=== PATIENT | female | born 1935 | race Caucasian/White ===

== ENCOUNTER 2022-04-29 09:00 | Outpatient (RCR) | payer OTHER, SELFPAY | END 2022-05-24 11:30 | disposition home or self-care (01) | PROVIDERS: Visit Provider Family Medicine | DX: M25.562 Pain in left knee (principal) | CPT/HCPCS: 97110; 97140 ==

== ENCOUNTER 2024-10-30 15:22 | Outpatient (CLI) | payer OTHER, SELFPAY | END 2024-10-30 15:23 | disposition home or self-care (01) | PROVIDERS: Visit Provider Student in an Organized Health Care Education/Training Program | DX: R55 Syncope and collapse (principal); R11.0 Nausea; R19.7 Diarrhea, unspecified | CPT/HCPCS: A0425; A0427 ==

== ENCOUNTER 2024-10-30 16:03 | Inpatient (IN) | payer OTHER, SELFPAY ==
[2024-10-30] VITALS (25 sets, daily range): BP systolic 126–145; BP diastolic 60–99; PULSE 69–97; RESP 9–24; TEMP 36.2; O2SAT 87–98; BMI 20.6
--- NOTE | 2024-10-30 16:29 | ED.GENADULT ---
HPI - General Adult General Date Seen: 10/30/24 Chief complaint: Head Injury/Pain Stated complaint: nausea, vomiting Time Seen by Provider: 10/30/24 16:18 History of Present Illness HPI narrative: 89-year-old female brought to the ER today by EMS from her home for evaluation of nausea, vomiting, diarrhea, leading to a fall with head injury. History is obtained in part from paramedics and in part from the patient. She does take Eliquis for stroke prophylaxis with AFib but no other cardiac medications. She is not on any medications for blood pressure or rate control. She also takes vitamins for her eyes. She has been healthy and well lately. She ate breakfast normally in lunch normally today. After lunch she went to the bathroom to go to the bathroom. She initially urinated and then started to feel unwell. It sounds like she subsequently had diarrhea and then eventually fell off the toilet. Details are a bit unclear whether not she fainted before after having diarrhea. It sounds like she hit her head and has a small laceration above her left eyebrow with a fair amount of dry blood on her face. She probably lost consciousness but unknown if she was unconscious when she hit the floor or from the head injury. She was on the bathroom floor for a while. Eventually she was able to call for help. Paramedics report that there was emesis and liquidy diarrhea on the floor around her. There was some blood on the floor but they suspect it was from her facial laceration, not bloody emesis or diarrhea, difficult to tell because of the mass. She has been alert and oriented but complaining of being very nauseous and very cold. Blood sugar was elevated at 340. Blood pressure was normal at about 140s/80s. product support specialist showed AFib in route. She has a known history of AFib. No RVR She is complaining of intense nausea and threw up again during transport. EMS established an IV and gave her 4 mg of Zofran and the beginnings of 250 mL of saline. They also report that she has bruising around her nose in both eyes. This suspect she was probably on the bathroom for for an hour to because her temperature was cold at 96.5. Patient is curled up in the position lying on her right shoulder. Her main complaint is how cold she feels and how nauseous she is. She denies headache. She denies any neck pain. She was placed into a C-collar as a precaution by EMS. She denies any abdominal pain cough, or back pain. She recalls that she did take her Eliquis this morning. She is not on any other prescription medications . She is allergic to sulfa. Related Data Home Medications ?Medication ?Instructions ?Recorded ?Confirmed apixaban 2.5 mg tablet (Eliquis) mg 10/30/24 brimonidine 0.2 %-timolol 0.5 % 1 drp ophthalmic (eye) Q12H 10/30/24 10/30/24 eye drops latanoprost 0.005 % eye drops 1 drp ophthalmic (eye) HS 10/30/24 10/30/24 lutein 15 mg-zeaxanthin extract 1 cap PO DAILY 10/30/24 10/30/24 0.7 mg capsule [id number] 1 cap PO DAILY 10/30/24 10/30/24 Allergies Allergy/AdvReac Type Severity Reaction Status Date / Time Sulfa (Sulfonamide Allergy Verified 10/30/24 22:38 Antibiotics) [facility] Medical History (Updated 10/31/24 @ 02:27 by Kevin Huynh MD) Facial laceration ?S01.81XA - Laceration without foreign body of other part of head, initial encounter (ICD-10) Nasal fracture ?S02.2XXA - Fracture of nasal bones, initial encounter for closed fracture (ICD-10) Dyslipidemia ?E78.5 - Hyperlipidemia, unspecified (ICD-10) Sensorineural hearing loss (SNHL) of both ears ?H90.3 - Sensorineural hearing loss, bilateral (ICD-10) Normal colonoscopy Anemia ?D64.9 - Anemia, unspecified (ICD-10) Hypoxia ?R09.02 - Hypoxemia (ICD-10) Dyspnea ?R06.00 - Dyspnea, unspecified (ICD-10) Syncope ?R55 - Syncope and collapse (ICD-10) Osteopenia ?M85.80 - Other specified disorders of bone density and structure, unspecified site (ICD-10) Atrial fibrillation ?I48.91 - Unspecified atrial fibrillation (ICD-10) Surgical History (Updated 10/30/24 @ 22:14 by Adreil Kee MD) History of cataract extraction with lens replacement H/O vein stripping ?Z98.890 - Other specified postprocedural states (ICD-10) History of D&C ?Z98.890 - Other specified postprocedural states (ICD-10) History of appendectomy ?Z90.49 - Acquired absence of other specified parts of digestive tract (ICD-10) Family History (Updated 10/30/24 @ 22:15 by Adriel Kee MD) Brother Multiple myeloma Dementia Father Gastrointestinal ulcer Mother Dementia Social History (Updated 10/30/24 @ 22:17 by Adriel Kee MD) Narrative: She lives independently in her own home in [place]. She has family that lives nearby that is helpful to her. She walks independently without assistive device. She mows her own lawn. She does her own cooking. She drives a car. She has 3 daughters and she designates all of them to be healthcare power of employment attorney. Her daughter Zarina Villagomez is a physician in [place]. Code status is DNR. What is your current living situation?: I presently have a place to live Problems where you live: no known problems Problems where you live details: no problems In the past 12 months, utilities in danger of being shut off: no In past 12 months, lack of transportation kept you from medical appts, meetings, work, or getting things needed for daily living: no In the past 12 mos, have been you worried that your food would run out before you had money to buy more?: never true In the past 12 mos, the food you bought just didn't last and you didn't have money to buy more?: never true Smoking Status: Never smoker How often do you have a drink containing alcohol: never How often do you have six or more drinks on one occasion: Never AUDIT-C Alcohol total score: 0 Non-prescribed substance use: denies use How often does anyone, including family, friends and others, physically hurt you: never How often does anyone, including family, friends and others, insult or talk down to you: never How often does anyone, including family, friends and others, threaten you with harm: never How often does anyone, including family, friends and others, scream or curse at you: never service: No Exam Narrative: Exam Narrative: Primary Survey: A- patent. Speaking clearly. Phonation normal. No stridor. B- breathing easily. Lung sounds clear and equal. Oxygen via nasal cannula by paramedics was a precaution. Saturations are normal on room air C- dry crusted blood on her face with a small left forehead/eyebrow laceration. Also dry crusted blood around her nose. no active bleeding. Blood pressure stable. Symmetric pulses and cap refill in 4 extremities. D- initially she is laying in the right lower lobe acute disposition and is nonverbal but when asked questions she is actually completely alert and oriented x3. She is covered in dry blood on her face, and wet nonbloody emesis and diarrhea on her torso and back side. She is keeping her arms called up against her body because she is cold and takes significant effort to help get her arms stretched out so he can get blood pressure, get the vomit cleaned off her body, and get her into warm, dry down and warm blankets to help him upper body . GCS 15. No focal deficits. Constitutional: Appears well-developed and well-nourished. Alert. Conversant. Non toxic. HENT: Head: Left forehead laceration 1 cm superior to the medial left eyebrow. Length is 1 cm. No underlying palpable forehead fracture.. No active bleeding. Bilateral periorbital ecchymosis and nasal ecchymosis. Dry blood at the nares. No depressed skull fracture.. Nose: Dry blood at the nares, which appears to probably have been coming from her other facial lacerations. There is a tiny 2-3 mm laceration on the bridge of the nose. Nose is quite tender to palpation. Nasal bruising and swelling. Bilateral periorbital and lower eyelid ecchymosis. No exophthalmos or enophthalmos. Mouth/Throat: Oral mucosa is clear but dry. No tongue lacerations. no trismus. Pharynx normal. Tonsils symmetric. No tonsillar enlargement, erythema, or exudate. Eyes: Conjunctivae normal. EOM normal. Pupils equal, round, and reactive to light. No scleral icterus. Neck: Normal range of motion. Neck supple. No tracheal deviation present. Cardiovascular: Normal rate, irregularly irregular rhythm. No gallop. No friction rub. No murmur heard. Symmetric radial artery pulses . No JVD Pulmonary/Chest: Effort normal. No stridor. No respiratory distress. No wheezes. No rales. No rhonchi . No tenderness. Abdominal: Soft. Bowel sounds normal. No distension. No mass. No tenderness. No rebound. No guarding. [] Musculoskeletal: RUE: Normal range of motion. No tenderness. No deformity LUE: Normal range of motion. No tenderness. No deformity RLE: Normal range of motion. No edema. No tenderness. No deformity LLE: Normal range of motion. No edema. No tenderness. No deformity Neurological: Alert and oriented to person, place, and time. Normal strength. CN II-VII intact. No sensory deficit. GCS eye subscore is 4. GCS verbal subscore is 5. GCS motor subscore is 6. Normal coordination Skin: Skin is warm and dry. No rash noted. No pallor. Normal capillary refill. Psychiatric: Complaining of feeling very cold. Initially seems drowsy and confused but that is incorrect. She is alert. She cooperates to the best of her ability. Overall, once we get cleaned up she is more cooperative Const: Vital Signs, click to edit/add: Vital Signs - 24 hr 10/30/24 16:16 10/30/24 16:17 10/30/24 16:33 Temperature 97.2 F L Pulse Rate 74 Pulse Rate [Right Pulse Oximeter] 77 Respiratory Rate 18 Blood Pressure 142/85 H Blood Pressure [Ri ght Upper Arm] 145/89 H Pulse Oximetry 97 97 Oxygen Delivery Me thod Room Air Oxygen Flow Rate 10/30/24 16:45 10/30/24 17:43 10/30/24 17:45 Temperature Pulse Rate 69 74 70 Pulse Rate [Right Pulse Oximeter] Respiratory Rate 21 15 Blood Pressure Blood Pressure [Ri ght Upper Arm] Pulse Oximetry 98 87 L 88 Oxygen Delivery Me thod Oxygen Flow Rate 10/30/24 17:46 10/30/24 17:47 10/30/24 17:47 Temperature Pulse Rate 76 71 Pulse Rate [Right Pulse Oximeter] 76 Respiratory Rate 9 L 13 Blood Pressure 142/89 H Blood Pressure [Ri ght Upper Arm] Pulse Oximetry 93 93 93 Oxygen Delivery Me thod Nasal Cannula Oxygen Flow Rate 3 10/30/24 18:00 10/30/24 18:02 10/30/24 18:15 Temperature Pulse Rate 70 73 84 Pulse Rate [Right Pulse Oximeter] Respiratory Rate Blood Pressure 143/99 H Blood Pressure [Ri ght Upper Arm] Pulse Oximetry 95 92 Oxygen Delivery Me thod Oxygen Flow Rate 10/30/24 18:17 10/30/24 18:52 10/30/24 19:00 Temperature Pulse Rate 97 91 86 Pulse Rate [Right Pulse Oximeter] Respiratory Rate 16 24 Blood Pressure 144/60 H Blood Pressure [Ri ght Upper Arm] Pulse Oximetry 91 93 Oxygen Delivery Me thod Oxygen Flow Rate 10/30/24 19:02 10/30/24 19:15 10/30/24 19:17 Temperature Pulse Rate 90 83 83 Pulse Rate [Right Pulse Oximeter] Respiratory Rate 18 16 18 Blood Pressure 126/63 134/60 Blood Pressure [Ri ght Upper Arm] Pulse Oximetry 92 96 93 Oxygen Delivery Me thod Oxygen Flow Rate 10/30/24 19:30 10/30/24 19:32 10/30/24 19:45 Temperature Pulse Rate 92 88 85 Pulse Rate [Right Pulse Oximeter] Respiratory Rate 19 15 16 Blood Pressure 143/63 H Blood Pressure [Ri ght Upper Arm] Pulse Oximetry 96 93 Oxygen Delivery Me thod Oxygen Flow Rate 10/30/24 19:47 10/30/24 20:00 10/30/24 20:02 Temperature Pulse Rate 76 83 81 Pulse Rate [Right Pulse Oximeter] Respiratory Rate 18 18 22 Blood Pressure 138/65 137/74 Blood Pressure [Ri ght Upper Arm] Pulse Oximetry 96 97 97 Oxygen Delivery Me thod Oxygen Flow Rate Course Vital Signs Vital signs: Initial Vital Signs Blood Pressure 142/85 H 10/30/24 16:16 Blood Pressure Mean 104 10/30/24 16:16 Vital Signs Blood Pressure 142/85 H 10/30/24 16:16 Temperature 97.2 F L 10/30/24 22:37 Pulse Rate 80 10/30/24 23:00 Respiratory Rate 20 10/30/24 23:00 Blood Pressure 138/86 10/30/24 22:37 Pulse Oximetry 99 10/31/24 01:10 Oxygen Delivery Method Nasal Cannula 10/31/24 01:10 Oxygen Flow Rate 2 10/31/24 01:10 Medications Administered Medications: Generic Name Dose Route Start Last Admin Trade Name Freq PRN Reason Stop Dose Admin Acetaminophen 650 mg 10/30/24 21:33 10/30/24 22:14 Acetaminophen 325 Mg Tablet PO 650 mg Q4H PRN Administration Latanoprost 1 drop 10/31/24 21:00 10/30/24 22:12 Latanoprost 0.005% Ophth EYE-BOTH 1 drop HS KEVAN Administration Non-Formulary Medication 1 drop 10/30/24 22:00 10/30/24 22:12 Brimonidine-Timolol EYE-BOTH 1 drop Q12H KEVAN Administration Omeprazole 20 mg 10/30/24 21:40 10/30/24 22:11 [address]eprazole [address] PO 20 mg BID KEVAN Administration Discontinued Medications Generic Name Dose Route Start Last Admin Trade Name Freq PRN Reason Stop Dose Admin Diphenhydramine HCl 12.5 mg 10/30/24 17:27 10/30/24 17:59 Diphenhydramine 50 Mg/Ml Inj IVP 10/30/24 17:28 12.5 mg ONCE ONE Administration Sodium Chloride 1,000 mls @ 1,000 mls/hr 10/30/24 16:30 10/30/24 18:04 0.9 % Sodium Chloride 1000 Ml IV 10/30/24 17:29 Infused .Q1H KEVAN Infusion Metoclopramide HCl 10 mg 10/30/24 17:27 10/30/24 18:02 Metoclopramide Hcl 5 Mg/Ml Inj IVP 10/30/24 17:28 10 mg ONCE ONE Administration Ondansetron HCl 4 mg 10/30/24 16:18 10/30/24 16:45 Ondansetron 2 Mg/Ml Inj IVP 10/30/24 16:19 4 mg ONCE ONE Administration Medical Decision Making [facility] Narrative Medical decision making narrative: 89-year-old female with history of atrial fibrillation brought to the ER today by EMS from home. She started having vomiting and diarrhea this afternoon and then apparently fainted in the bathroom. She has signs of a frontal left eyebrow laceration with facial bleeding and also bilateral periorbital ecchymosis. She is on Eliquis. She was hemodynamically stable upon arrival Trauma: Although she fell and hit her head on Eliquis head CT scan is negative for any acute intracranial bleed. Mental status is normal. Because of mechanism a C-spine CT is obtained and is also negative. Patient is cleared from the C-collar after negative imaging. She has no focal deficits or signs or symptoms of spinal cord injury. Facial CT does show mildly displaced nasal bone fractures. She does have a small 1 cm laceration on her forehead just above her left eyebrow which we were able to clean here in the ER and then closed using Dermabond she does have a very tiny 2-3 mm wound on her nasal bridge which was closed with Dermabond. Cardiac: Fell off the toilet. Unknown if she got dizzy and fell, had a syncopal event call, sees, or mechanical fall. With consideration for cardiac etiologies, EKG was obtained and shows atrial fibrillation which is previously known. She is not having any chest pain. Troponin is normal. N terminal proBNP is abnormal at 1830. CT chest is obtained and[] Pulmonary: Does have a cough but she says that is chronic. No wheezing or bronchospasm on exam. Initially sats were normal but subsequently in the ER was hypoxic with sats in the high 80s on room air. Sats came up to the 90s on nasal cannula. Chest CT shows no acute findings such as pneumonia, pneumothorax, pulmonary edema. No rib fractures. Incidentally she does have pulmonary nodules which require 6 month follow-up CT. GI. She had significant vomiting and diarrhea at home and had ongoing nausea here in the ER, unresponsive to 2 doses of Zofran. Differential here would include viral gastroenteritis as well as more sinister causes such as bowel obstruction, colitis, diverticulitis, perforation, abscess, mesenteric ischemia (has a history of AFib but has been compliant in taking her Eliquis, including this morning. Therefore unlikely to be embolic.) On abdomen/pelvis CT no evidence for colitis, ischemia, perforation, abscess, obstruction. There is some nonspecific pericholecystic fluid without any other evidence for cholecystitis. She is not having any tenderness on serial abdominal exam but just does have nausea. At this point no definitive evidence for acute cholecystitis. White count normal. Lactic acid is fortunately normal at 1.3. Renal/electrolytes: Despite repetitive vomiting and diarrhea at home, sodium and potassium are normal. Kidney function normal. Endocrine: Blood sugar 182. Does not have any known history of diabetes Heme: Patient is anemic with a hemoglobin 9.2. I do not have any baseline labs for comparison. Most recent hemoglobin in the [employer] system was in 2020. At that time it was 14.1. She has no bloody vomit or bloody diarrhea here in the ER. She denies any recent bloody emesis or melena. No evidence for any internal bleeding on CT scan chest/abdomen/pelvis. She is on Eliquis for atrial fibrillation stroke prophylaxis. Will need serial hemoglobins in the hospital. Unclear if she was bleeding from her facial wound enough to cause this degree of anemia. Blood pressure stable. Lactic acid is normal. Infectious disease: Urinalysis is negative. Chest x-ray negative for pneumonia. No evidence for cellulitis or skin infection. Does not have any neck stiffness or headache to suggest meningitis. No clear evidence for sepsis causing her syncope. COVID/RSV/influenza negative. Disposition: Clearly the patient needs to be admitted. Discussed with hospitalist, Dr. Kee who graciously will admit her. Lab Data Labs: Lab Results 10/30/24 10/30/24 Range/Units 16:50 19:04 WBC 8.39 (4.50-11.00) K/uL RBC 3.51 L (4.00-5.20) m/uL Hgb 9.2 L (12.0-16.0) gm/dL Hct 30.4 L (33.0-51.0) % MCV 87 (80-100) fL MCH 26 (26-34) pg MCHC 30 L (32-36) gm/dL RDW Coeff of Ivis 16.6 H (11.5-15.5) % Plt Count 253 (140-440) K/uL Neut % (Auto) 84.8 H (42.0-72.0) % Lymph % (Auto) 9.4 L (20-44) % Brooke % (Auto) 4.1 (0.0-11.0) % Eos % (Auto) 1.0 (0.0-7.0) % Baso % (Auto) 0.6 (0.0-3.0) % Neut # (Auto) 7.10 H (1.7-7.0) K/uL Lymph # (Auto) 0.80 L (0.90-2.90) K/uL Brooke # (Auto) 0.30 (0.00-0.90) K/UL Eos # (Auto) 0.08 (0.00-0.50) K/uL Baso # (Auto) 0.05 (0.00-0.30) K/uL Abs Immat Gran (auto) 0.01 (0.00-0.30) K/uL Imm/Tot Granulo (auto) 0.1 % Sodium 136 (135-149) mmol/L Potassium 4.3 (3.6-5.1) mmol/L Chloride 102 (96-114) mmol/L Carbon Dioxide 24 (20-32) mmol/L Anion Gap 10 (7-15) mEq/L BUN 25 (7-30) mg/dL Creatinine 0.7 (0.5-1.5) mg/dL Estimated GFR 83 ml/min Glucose 182 H (60-115) mg/dL Lactate 1.3 (0.5-1.9) mmol/L Calcium 8.7 (8.4-10.6) mg/dL Troponin I < 0.01 L (0.01-0.04) ng/mL NT-Pro-B Natriuret Pep 1830 pg/mL SARS-CoV-2 (PCR) Negative SARS-CoV-2 (Negative) Influenza Type A (PCR) Negative PCR FLU A (Negative) Influenza Type B (PCR) Negative PCR FLU B (Negative) RSV (PCR) Negative PCR RSV (Negative) Imaging Data CT scan - head: Attestation: I have reviewed the pertinent imaging results. My impression: No acute findings. Possible encephalomalacia and right occipital lobe Radiologist's impression: IMPRESSION: No acute intracranial findings. CT C spine: Attestation: I have reviewed the pertinent imaging results. Radiologist's impression: IMPRESSION: 1. No sign of acute injury. 2. Multilevel degenerative spondylosis. CT Chest/Ab/Pelvis: Attestation: I have reviewed the pertinent imaging results. Radiologist's impression: IMPRESSION: 1. Trace pericholecystic fluid without other signs for acute cholecystitis. Consider correlation with right upper quadrant ultrasound. 2. Multiple bilateral subpleural nodules, measuring up to 6 mm. Recommend follow-up chest CT in 3-6 months. 3. No other acute findings within the chest, abdomen, or pelvis. 4. Few nonacute findings, as above. CT facial bones: Attestation: I have reviewed the pertinent imaging results. Radiologist's impression: IMPRESSION: Acute mildly displaced bilateral nasal bone fractures. ECG Data Attestation: I personally reviewed and interpreted this ECG as follows: Interpretation: Atrial fibrillation Rate: 83 WA: Not applicable QRS axis: Rightward axis deviation. ST segment/T wave: No ST segment elevation or depression. QTc: 573 Discharge Plan Discharge Clinical Impression: Anemia, Syncope, Nausea, Forehead laceration, Fracture of nasal bone, Hypoxia, Multiple pulmonary nodules Patient Disposition: Admitted As Inpatient Condition: Guarded Procedures Laceration Left forehead laceration: Pre procedure diagnosis: Left forehead laceration Verification/time out: correct site and correct procedure Site: face Depth: simple, single layer Size (cm): other (The Dermabond)
[2024-10-30] MEDS: ONDANSETRON 2 MG/ML inj 4 MG IVP (16:45)
[2024-10-30] MEDS: 0.9 % SODIUM CHLORIDE 1000 ml 1,000 ML IV (16:45)
[2024-10-30 16:51] LABS: Lactate* 1.3 mmol/L (0.5-1.9)
[2024-10-30 16:54] LABS: Basophils Absolute Auto 0.05 K/uL (0.00-0.30); Basophils Percent Auto 0.6 % (0.0-3.0); Eosinophils Absolute Auto 0.08 K/uL (0.00-0.50); Hematocrit 30.4 % (33.0-51.0); Hemoglobin* 9.2 gm/dL (12.0-16.0); Immature Granulocytes Abs Auto 0.01 K/uL (0.00-0.30); Immature Granulocytes Pct Auto 0.1 %; Lymphocytes Percent Auto 9.4 % (20-44); Mean Corpuscular HGB Conc 30 gm/dL (32-36); Mean Corpuscular Hemoglobin 26 pg (26-34); Mean Corpuscular Volume 87 fL (80-100); Monocytes Percent Auto 4.1 % (0.0-11.0); Neutrophils Percent Auto 84.8 % (42.0-72.0); Platelet Count* 253 K/uL (140-440); RDW Coefficient of Variation % 16.6 % (11.5-15.5); Red Blood Count 3.51 m/uL (4.00-5.20); White Blood Count* 8.39 K/uL (4.50-11.00)
[2024-10-30 16:58] LABS: Slide Review Reflex No
[2024-10-30 17:06] LABS: Appearance Urine Clear (Clear); Bilirubin Urine Negative (Negative); Blood Urine Negative (Negative); Color Urine Yellow (Yellow); Glucose Urine 1+ (Negative); Ketones Urine Negative (Negative); Leukocyte Esterase Urine Negative (Negative); Nitrite Urine Negative (Negative); Protein Urine Negative (Negative); Specific Gravity Urine 1.015 (1.000-1.030); Urobilinogen Urine 0.2 (0.2-1.0); pH Urine 7.5 (5.0-8.5)
[2024-10-30 17:12] LABS: Chloride* 102 mmol/L (96-114); Potassium* 4.3 mmol/L (3.6-5.1); Sodium* 136 mmol/L (135-149)
[2024-10-30 17:15] LABS: Anion Gap 10 mEq/L (7-15); Blood Urea Nitrogen* 25 mg/dL (7-30); Carbon Dioxide* 24 mmol/L (20-32); Creatinine* 0.7 mg/dL (0.5-1.5); Estimated Glomerular Filt Rate 83 ml/min
[2024-10-30 17:16] LABS: Calcium* 8.7 mg/dL (8.4-10.6); Glucose* 182 mg/dL (60-115)
[2024-10-30 17:28] LABS: RBC Urine 0-2 (0-2); WBC Urine 0-2 (0-5)
[2024-10-30 17:30] LABS: NT Pro B Type NatriureticPept* 1830 pg/mL; Troponin I* < 0.01 ng/mL (0.01-0.04)
[2024-10-30] MEDS: diphenhydrAMINE 50 MG/ML inj 12.5 MG IVP (17:59)
[2024-10-30] MEDS: METOCLOPRAMIDE HCL 5 MG/ML INJ 10 MG IVP (18:02)
[2024-10-30 19:44] LABS: PCR FLU A Negative PCR FLU A (Negative); PCR FLU B Negative PCR FLU B (Negative); PCR RSV Negative PCR RSV (Negative); SARS PCR* Negative SARS-CoV-2 (Negative)
--- NOTE | 2024-10-30 21:48 | P.IMHP_ITS ---
Hospitalist- H&P: HPI History of Present Illness Date Seen: 10/30/24 Chief complaint: nausea, vomiting Narrative: Dinora Villagomez is a 89 year old female with atrial fibrillation presents with acute on chronic fatigue, dyspnea, anemia and syncope today. Patient had an episode of syncope on the toilet today. Patient reports she did not feel very well this morning. Went to sit on the toilet. She subsequently had a diarrhea stool fell forward off the toilet on the floor where she sustained a laceration above her eyebrow and over her nose and had quite a bit of bleeding from this injury. Paramedics found diarrhea stool and blood in the bathroom. She did arouse and call for help. She reports that she has had acute on chronic exertional dyspnea. She is normally very active including mowing her own large lawn. In the winter she has been walking a mi a day. Yesterday she attempted to walk her mi but had to stop 6 times to catch her breath. She did report gradually worsening exertional dyspnea to her primary care provider 3 weeks ago and she got scheduled for a nuclear stress test which is pending. She is known to have atrial fibrillation. She is not on medication for rate control but does take Eliquis. In the emergency department she was found to have anemia with a hemoglobin of 9.2 and an MCV of 87. Her last hemoglobin in the clinic was in February of 2021 with a hemoglobin of 14.1 and MCV of 99. She has a remote history of iron deficiency anemia due to menstrual bleeding but has not had any history of anemia since then. She is not aware of any bleeding other than from her facial laceration today. She denies bloody, melanotic or maroon stools. She has not had previous problems with syncope or seizure. She was seen to be hypoxic in the emergency department. O2 sat of 87% on room air but unremarkable chest CT. She had vomiting in the emergency department which was nonbloody. She continues to report nausea and has some mild epigastric pain as well. She was not aware of the diarrhea that was reported by the paramedics when they picked her up. She reports feeling chilled all day today. She is not aware of having a fever. [facility] Medical History (Updated 10/30/24 @ 22:26 by Adriel Kee MD) Dyslipidemia ?E78.5 - Hyperlipidemia, unspecified (ICD-10) Sensorineural hearing loss (SNHL) of both ears ?H90.3 - Sensorineural hearing loss, bilateral (ICD-10) Normal colonoscopy Anemia ?D64.9 - Anemia, unspecified (ICD-10) Hypoxia ?R09.02 - Hypoxemia (ICD-10) Dyspnea ?R06.00 - Dyspnea, unspecified (ICD-10) Syncope ?R55 - Syncope and collapse (ICD-10) Osteopenia ?M85.80 - Other specified disorders of bone density and structure, unspecified site (ICD-10) Atrial fibrillation ?I48.91 - Unspecified atrial fibrillation (ICD-10) Surgical History (Updated 10/30/24 @ 22:14 by Adriel Kee MD) History of cataract extraction with lens replacement H/O vein stripping ?Z98.890 - Other specified postprocedural states (ICD-10) History of D&C ?Z98.890 - Other specified postprocedural states (ICD-10) History of appendectomy ?Z90.49 - Acquired absence of other specified parts of digestive tract (ICD- 10) Family History (Updated 10/30/24 @ 22:15 by Adriel Kee MD) Brother Multiple myeloma Dementia Father Gastrointestinal ulcer Mother Dementia Social History (Updated 10/30/24 @ 22:17 by Adriel Kee MD) Narrative: She lives independently in her own home in [place]. She has family that lives nearby that is helpful to her. She walks independently without assistive device. She mows her own lawn. She does her own cooking. She drives a car. She has 3 daughters and she designates all of them to be healthcare power of estate attorney. Her daughter Zarina Villagomez is a physician in [place]. Code status is DNR. Smoking Status: Never smoker How often do you have a drink containing alcohol: never How often do you have six or more drinks on one occasion: Never AUDIT-C Alcohol total score: 0 Non-prescribed substance use: denies use service: No Meds Home Medications and Allergies Home Medications ?Medication ?Instructions ?Recorded ?Confirmed ?Type apixaban 2.5 mg tablet (Eliquis) mg 10/30/24 History brimonidine 0.2 %-timolol 0.5 % 1 drp ophthalmic (eye) Q12H 10/30/24 10/30/24 History eye drops latanoprost 0.005 % eye drops 1 drp ophthalmic (eye) HS 10/30/24 10/30/24 History lutein 15 mg-zeaxanthin extract 1 cap PO DAILY 10/30/24 10/30/24 History 0.7 mg capsule [id number] 1 cap PO DAILY 10/30/24 10/30/24 History Allergies Allergy/AdvReac Type Severity Reaction Status Date / Time Sulfa (Sulfonamide Allergy Verified 10/30/24 21:33 Antibiotics) Exam Narrative: Exam Narrative: She is alert and appears in no distress. Head is notable for moderate bruising around both eyes upper and lower lids. She has a small laceration above her left eyebrow and over the bridge of her nose. [id number] swelling of the nose without marked deformity. No active bleeding. No other trauma on her head is noted. No facial asymmetry. Extraocular movements are full. Visual reyes in intact. Pupils are equal round reactive to light. Oropharynx with dry mucous membranes but otherwise normal. No obvious oropharyngeal trauma. Neck is supple without mass or adenopathy or tenderness. Respirations notable for mild diffuse crackles in all lung reyes. No wheezing. No consolidation. Cardiovascular: S1, S2, irregularly irregular 1/6 systolic murmur. No gallop or rub. Abdomen is soft with minimal epigastric tenderness. No mass. No peritonitis. External genitalia normal. She has intact pulses in all her extremities. She moves all 4 extremities well. There is no rash. No edema. Const: Vital Signs, click to edit/add: Vital Signs - 24 hr 10/30/24 16:16 10/30/24 16:17 10/30/24 16:33 Temperature 97.2 F L Pulse Rate 74 Pulse Rate [Right Pulse Oximeter] 77 Respiratory Rate 18 Blood Pressure 142/85 H Blood Pressure [Ri ght Upper Arm] 145/89 H Pulse Oximetry 97 97 Oxygen Delivery Me thod Room Air Oxygen Flow Rate 10/30/24 16:45 10/30/24 17:43 10/30/24 17:45 Temperature Pulse Rate 69 74 70 Pulse Rate [Right Pulse Oximeter] Respiratory Rate 21 15 Blood Pressure Blood Pressure [Ri ght Upper Arm] Pulse Oximetry 98 87 L 88 Oxygen Delivery Me thod Oxygen Flow Rate 10/30/24 17:46 10/30/24 17:47 10/30/24 17:47 Temperature Pulse Rate 76 71 Pulse Rate [Right Pulse Oximeter] 76 Respiratory Rate 9 L 13 Blood Pressure 142/89 H Blood Pressure [Ri ght Upper Arm] Pulse Oximetry 93 93 93 Oxygen Delivery Me thod Nasal Cannula Oxygen Flow Rate 3 10/30/24 18:00 10/30/24 18:02 10/30/24 18:15 Temperature Pulse Rate 70 73 84 Pulse Rate [Right Pulse Oximeter] Respiratory Rate Blood Pressure 143/99 H Blood Pressure [Ri ght Upper Arm] Pulse Oximetry 95 92 Oxygen Delivery Me thod Oxygen Flow Rate 10/30/24 18:17 10/30/24 18:52 10/30/24 19:00 Temperature Pulse Rate 97 91 86 Pulse Rate [Right Pulse Oximeter] Respiratory Rate 16 24 Blood Pressure 144/60 H Blood Pressure [Ri ght Upper Arm] Pulse Oximetry 91 93 Oxygen Delivery Me thod Oxygen Flow Rate 10/30/24 19:02 10/30/24 19:15 10/30/24 19:17 Temperature Pulse Rate 90 83 83 Pulse Rate [Right Pulse Oximeter] Respiratory Rate 18 16 18 Blood Pressure 126/63 134/60 Blood Pressure [Ri ght Upper Arm] Pulse Oximetry 92 96 93 Oxygen Delivery Me thod Oxygen Flow Rate 10/30/24 19:30 10/30/24 19:32 10/30/24 19:45 Temperature Pulse Rate 92 88 85 Pulse Rate [Right Pulse Oximeter] Respiratory Rate 19 15 16 Blood Pressure 143/63 H Blood Pressure [Ri ght Upper Arm] Pulse Oximetry 96 93 Oxygen Delivery Me thod Oxygen Flow Rate 10/30/24 19:47 10/30/24 20:00 10/30/24 20:02 Temperature Pulse Rate 76 83 81 Pulse Rate [Right Pulse Oximeter] Respiratory Rate 18 18 22 Blood Pressure 138/65 137/74 Blood Pressure [Ri ght Upper Arm] Pulse Oximetry 96 97 97 Oxygen Delivery Me thod Oxygen Flow Rate Documenting provider has reviewed patient's vital signs: yes Hospitalist - H&P: Result Labs Labs: Short CBC 10/30/24 Range/Units 16:50 WBC 8.39 (4.50-11.00) K/uL Hgb 9.2 L (12.0-16.0) gm/dL Hct 30.4 L (33.0-51.0) % Plt Count 253 (140-440) K/uL BMP 10/30/24 16:50 Sodium 136 Potassium 4.3 Chloride 102 Carbon Dioxide 24 BUN 25 Creatinine 0.7 Glucose 182 H Calcium 8.7 Cardiac Enzymes 10/30/24 Range/Units 16:50 Troponin I < 0.01 L (0.01-0.04) ng/mL Urine 10/30/24 Range/Units Unknown Urine Color Yellow (Yellow) Urine Appearance Clear (Clear) Urine pH 7.5 (5.0-8.5) Ur Specific [place] 1.015 (1.000-1.030) Urine Protein Negative (Negative) Urine Glucose (UA) 1+ A (Negative) Assessment and Plan Assessment and plan (1) Syncope: Problem comment: Syncope is the likely explanation for loss of consciousness today. Possible co ntributing causes including gastrointestinal illness with vomiting and diarrhea, vasovagal syncope while on the toilet, new anemia and possibly cardiopulmonary disease. Continue evaluation for all of these. Status: Acute (2) Vomiting: Problem comment: Monitor for recurrence and evaluate based on clinical course. Clear liquid diet tonight Status: Acute (3) Diarrhea: Problem comment: Monitor for recurrence and evaluate depending on clinical course Status: Acute (4) Dyspnea: Problem comment: Acute on chronic dyspnea with exertion. Cause for this is uncertain. Considerations include lung disease, heart disease including heart failure, pulmonary hypertension, atrial fibrillation with RVR, anemia. Status: Acute (5) Hypoxia: Problem comment: Cause for this is uncertain. She does have mildly abnormal lung exam. CT chest is unremarkable. Did not have CTA for PE though she is on Eliquis. Status: Acute (6) Anemia: Problem comment: She has a new anemia that has developed in the last 4 and half years. She has a dropping MCV suggestive of possible iron deficiency. Obtain iron studies. Evaluate for blood loss. Hold apixaban for now pending possibility of upper endoscopy if evidence of GI bleeding. Status: Acute Plan 89-year-old female admitted to the hospital for evaluation of multiple problems noted above. She will need evaluation for her syncope, new anemia, vomiting and diarrhea, hypoxia and worsening dyspnea. Evaluation for the these multiple problems will likely take 2-3 days. Anticipate discharge to home. Total Time Spent Total Time Spent: Total time spent today is 85 minutes in coordination of care, reviewing outside records, discussion with patient and her daughters and other providers about ongoing evaluation management of these multiple problems
[2024-10-30] MEDS: OMEPRAZOLE 20 MG CAPSULE DR PO (22:11)
[2024-10-30] MEDS: LATANOPROST 0.005% OPHTH 1 DROP EYE-BOTH (22:12)
[2024-10-30] MEDS: ACETAMINOPHEN 325 MG TABLET 650 MG PO (22:14)
[2024-10-30 22:52] LABS: Hemoglobin* 9.1 gm/dL (12.0-16.0)
[2024-10-31] VITALS (12 sets, daily range): BP systolic 107–148; BP diastolic 45–83; PULSE 61–86; RESP 14–20; TEMP 36.5–37.1; O2SAT 90–99
[2024-10-31 06:32] LABS: Basophils Absolute Auto 0.05 K/uL (0.00-0.30); Basophils Percent Auto 0.7 % (0.0-3.0); Eosinophils Absolute Auto 0.04 K/uL (0.00-0.50); Eosinophils Percent Auto 0.6 % (0.0-7.0); Hematocrit 26.4 % (33.0-51.0); Immature Granulocytes Abs Auto 0.01 K/uL (0.00-0.30); Immature Granulocytes Pct Auto 0.1 %; Immature Reticulocyte Fraction 32.2 % (3.0-15.9); Lymphocytes Absolute Auto 1.38 K/uL (0.90-2.90); Lymphocytes Percent Auto 20.7 % (20-44); Mean Corpuscular HGB Conc 30 gm/dL (32-36); Mean Corpuscular Hemoglobin 26 pg (26-34); Mean Corpuscular Volume 88 fL (80-100); Monocytes Percent Auto 10.8 % (0.0-11.0); Neutrophils Absolute Auto 4.47 K/uL (1.7-7.0); Neutrophils Percent Auto 67.1 % (42.0-72.0); Platelet Count* 213 K/uL (140-440); RDW Coefficient of Variation % 16.8 % (11.5-15.5); Red Blood Count 3.01 m/uL (4.00-5.20); Reticulocyte Hemoglobin Equivi 23.7 pg (29.0-35.0); Reticulocytes Absolute 0.09 # (0.03-0.08); White Blood Count* 6.67 K/uL (4.50-11.00)
[2024-10-31 06:41] LABS: Albumin* 3.7 g/dL (3.3-5.0)
[2024-10-31 06:44] LABS: Aspartate Amino Transferase* 29 U/L (12-35); Bilirubin Total* 0.4 mg/dL (0.1-1.5); Magnesium* 2.2 mg/dL (1.5-2.6); Total Protein* 6.3 g/dL (6.0-8.3)
[2024-10-31 06:45] LABS: Alanine Aminotransferase* 17 U/L (4-35); Alkaline Phosphatase* 48 U/L (40-150)
[2024-10-31 06:51] LABS: Iron* 29 ug/dL (37-170)
[2024-10-31 07:00] LABS: Hemoglobin* 7.9 gm/dL (12.0-16.0)
--- NOTE | 2024-10-31 07:00 | CRLHL7_ITS ---
For Patients: As a result of the Century Cures Act, medical imaging exams and procedure reports are released immediately into your electronic medical record. You may view this report before your referring provider. If you have questions, please contact your health care provider. INDICATION: Vomiting, tenderness, pericholecystic fluid on CT. TECHNIQUE: Ultrasound abdomen limited. Thirteen images. COMPARISON: CT 10/30/2024. FINDINGS: Gallbladder: No gallstones are visualized. Gallbladder wall thickening is present measuring up to 4 mm. There is trace pericholecystic edema. Negative sonographic Romero`s sign. Common bile duct: 4 mm. Unremarkable limited exam of the common bile duct, without visualized filling defect. IMPRESSION: 1. Gallbladder wall thickening and pericholecystic edema raises concern for acute acalculous cholecystitis; however, sonographic Romero`s sign is negative. Recommend correlation with recent pain medication administration and physical exam. If further imaging is required for problem solving, consider nuclear medicine hepatobiliary imaging. 2. No biliary ductal dilation. Dictated by Sarahi Lloyd MD @ 10/31/2024 7:09:39 AM (Electronically Signed)
[2024-10-31 07:01] LABS: Percent Iron Saturation 7 % (20-50); Total Iron Binding Capacity 412 ug/dL (265-497)
--- NOTE | 2024-10-31 07:01 | PC.NURSE ---
End of shift summary: Pt has been A&O, afebrile and VSS with exception to needing supplemental O2 overnight. O2 sats dropped to 87-88% on RA so she was placed 1L for support. Pt c/o ?all over stiffness? so PRN Tylenol was given at bedtime. Pt slept well in between cares. She is Ax1 up to the BR. She?s continent of [place] but does report some dribbling. NPO @ 0100 for gallbladder US done this morning. ECHO also ordered for today. PIV in left wrist SL. TELE read A. Fib/Flutter. Eliquis currently on hold. Bilateral periorbital bruising and over nose. Left forehead lac closed with glue and nasal bridge lac MICHAEL. ?
[2024-10-31 07:05] LABS: Hemoglobin A1C* 5.8 % (0-5.6)
[2024-10-31 07:52] LABS: Slide Review Reflex No
--- NOTE | 2024-10-31 08:22 | PM.IMPN1 ---
Progress Note: A&P Assessment and plan (1) Syncope: Problem details: - presented with LOC on the toilet 10/30, presumed syncope with ddx of viral GI illness, vasovagal source, anemia, valvular disease - telemetry unremarkable, TTE 10/31, blood transfusion ordered 10/31 - therapies following Status: Acute (2) Anemia: Problem details: - new anemia (9.2 on 10/30, Hgb 14 in 2020), normocytic - 7.9 on 10/31, will transfuse 1U PRBCs and continue to follow - FOBT pending, on schedule for EGD 11/01/24 - LDH, Haptoglobin, peripheral smear pending (elevated reticulocyte count 10/30) - holding Apixaban, receiving BID PPI Status: Acute (3) Atrial fibrillation: Problem details: - anticoagulated on Apixaban, doesn't require rate control - repeat TTE ordered Last echocardiogram was September of 2022: Final Impressions: 1. Normal LV size, moderately increased wall thickness, normal global systolic function with an estimated EF of 60 - 65%. 2. Severe biatrial enlargement. 3. The aortic valve is trileaflet and sclerotic, no stenosis and trivial regurgitation. 4. The mitral valve is sclerotic, trace mitral regurgitation. 5. Normal estimated RV systolic (32 mmHg) and RA (3 mmHg) pressures. 6. Color Doppler suggests a possible PFO. Status: Acute (4) Dyspnea: Problem details: - acute on chronic dyspnea with exertion, presumably 2/2 anemia. ddx includes CHF, pulmonary HTN, atrial fibrillation Status: Acute (5) Hypoxia: Problem details: - mild, on RA 10/31 - source unclear: reassuring CTA (incidental nodules need outpatient f/u), ddx includes cardiac process or anemia. TTE pending Status: Acute (6) Vomiting and diarrhea: Problem details: - noted prior to admission, no recurrence 10/31, advancing diet without any symptoms - possibly cholecystitis on imaging, exam and symptoms not c/w this (likely related to R heart disease) Status: Acute (7) Nasal fracture: Problem details: - mildly displaced bilateral nasal bone fractures, conservative management Status: Acute Plan - per above - daughter Zarina updated at bedside, questions answered Subjective Date Seen: 10/31/24 Interval history: Dinora was admitted to the hospital last night after having an episode of syncope on the toilet that was accompanied by diarrhea and vomiting. In the emergency room, found to be hypoxic with an oxygen saturation of 87% on room air. Imaging revealed a minimally displaced nasal fracture, incidentally noted small pulmonary nodules and possible cholecystitis. Labs revealed a new normocytic anemia with hemoglobin of 9.2 (was 14 in 2020). Patient has not noticed any melena or hematochezia, she is anticoagulated and Eliquis for history of atrial fibrillation. Required low-dose supplemental oxygen overnight, stable on room air this morning. Hgb today is 7.9; she is amenable to a blood transfusion, particularly in the setting of dyspnea and hospitalization. TTE pending, FOBT not yet collected. She is tentatively scheduled for EGD tomorrow given concern for GI bleed. This morning, Dinora is eating. Has no RUQ pain, no nausea or recurrent vomiting/diarrhea. No specific concerns for hospitalist team this morning. Exam Narrative: Exam Narrative: GEN: Alert and sitting comfortably in bed. Hard of hearing, answering questions appropriately HEENT: Bruising under eyes bilaterally, hemostatic abrasions over bridge of nose. EOMIs bilaterally CV: Irregular rhythm, rate 60-70s R: LCTA bilaterally without concerning wheezing Ext: wwp, trace edema BLE Skin: No other concerning skin lesions or rashes on exposed skin Neuro: Nonfocal Psych: Appropriate Const: Vital Signs, click to edit/add: Vital Signs - 24 hr 10/30/24 16:16 10/30/24 16:17 10/30/24 16:33 Temperature 97.2 F L Pulse Rate 74 Pulse Rate [Pulse Oximeter] Pulse Rate [Right Pulse Oximeter] 77 Respiratory Rate 18 Blood Pressure 142/85 H Blood Pressure [Le ft Arm] Blood Pressure [Ri ght Upper Arm] 145/89 H Pulse Oximetry 97 97 Oxygen Delivery Me thod Room Air Oxygen Flow Rate 10/30/24 16:45 10/30/24 17:43 10/30/24 17:45 Temperature Pulse Rate 69 74 70 Pulse Rate [Pulse Oximeter] Pulse Rate [Right Pulse Oximeter] Respiratory Rate 21 15 Blood Pressure Blood Pressure [Le ft Arm] Blood Pressure [Ri ght Upper Arm] Pulse Oximetry 98 87 L 88 Oxygen Delivery Me thod Oxygen Flow Rate 10/30/24 17:46 10/30/24 17:47 10/30/24 17:47 Temperature Pulse Rate 76 71 Pulse Rate [Pulse Oximeter] Pulse Rate [Right Pulse Oximeter] 76 Respiratory Rate 9 L 13 Blood Pressure 142/89 H Blood Pressure [Le ft Arm] Blood Pressure [Ri ght Upper Arm] Pulse Oximetry 93 93 93 Oxygen Delivery Me thod Nasal Cannula Oxygen Flow Rate 3 10/30/24 18:00 10/30/24 18:02 10/30/24 18:15 Temperature Pulse Rate 70 73 84 Pulse Rate [Pulse Oximeter] Pulse Rate [Right Pulse Oximeter] Respiratory Rate Blood Pressure 143/99 H Blood Pressure [Le ft Arm] Blood Pressure [Ri ght Upper Arm] Pulse Oximetry 95 92 Oxygen Delivery Me thod Oxygen Flow Rate 10/30/24 18:17 10/30/24 18:52 10/30/24 19:00 Temperature Pulse Rate 97 91 86 Pulse Rate [Pulse Oximeter] Pulse Rate [Right Pulse Oximeter] Respiratory Rate 16 24 Blood Pressure 144/60 H Blood Pressure [Le ft Arm] Blood Pressure [Ri ght Upper Arm] Pulse Oximetry 91 93 Oxygen Delivery Me thod Oxygen Flow Rate 10/30/24 19:02 10/30/24 19:15 10/30/24 19:17 Temperature Pulse Rate 90 83 83 Pulse Rate [Pulse Oximeter] Pulse Rate [Right Pulse Oximeter] Respiratory Rate 18 16 18 Blood Pressure 126/63 134/60 Blood Pressure [Le ft Arm] Blood Pressure [Ri ght Upper Arm] Pulse Oximetry 92 96 93 Oxygen Delivery Me thod Oxygen Flow Rate 10/30/24 19:30 10/30/24 19:32 10/30/24 19:45 Temperature Pulse Rate 92 88 85 Pulse Rate [Pulse Oximeter] Pulse Rate [Right Pulse Oximeter] Respiratory Rate 19 15 16 Blood Pressure 143/63 H Blood Pressure [Le ft Arm] Blood Pressure [Ri ght Upper Arm] Pulse Oximetry 96 93 Oxygen Delivery Me thod Oxygen Flow Rate 10/30/24 19:47 10/30/24 20:00 10/30/24 20:02 Temperature Pulse Rate 76 83 81 Pulse Rate [Pulse Oximeter] Pulse Rate [Right Pulse Oximeter] Respiratory Rate 18 18 22 Blood Pressure 138/65 137/74 Blood Pressure [Le ft Arm] Blood Pressure [Ri ght Upper Arm] Pulse Oximetry 96 97 97 Oxygen Delivery Me thod Oxygen Flow Rate 10/30/24 22:37 10/30/24 22:37 10/30/24 23:00 Temperature 97.2 F L Pulse Rate 81 Pulse Rate [Pulse Oximeter] 77 Pulse Rate [Right Pulse Oximeter] Respiratory Rate 20 20 Blood Pressure Blood Pressure [Le ft Arm] 138/86 Blood Pressure [Ri ght Upper Arm] Pulse Oximetry 94 94 Oxygen Delivery Me thod Nasal Cannula Nasal Cannula Oxygen Flow Rate 2 2 10/30/24 23:00 10/30/24 23:00 10/31/24 01:10 Temperature Pulse Rate Pulse Rate [Pulse Oximeter] 80 80 Pulse Rate [Right Pulse Oximeter] Respiratory Rate 20 20 Blood Pressure Blood Pressure [Le ft Arm] Blood Pressure [Ri ght Upper Arm] Pulse Oximetry 88 99 Oxygen Delivery Me thod Room Air Nasal Cannula Oxygen Flow Rate 2 10/31/24 03:00 10/31/24 07:00 Temperature 98.3 F Pulse Rate Pulse Rate [Pulse Oximeter] 77 61 Pulse Rate [Right Pulse Oximeter] Respiratory Rate 18 16 Blood Pressure Blood Pressure [Le ft Arm] 107/45 L 129/55 L Blood Pressure [Ri ght Upper Arm] Pulse Oximetry 95 95 Oxygen Delivery Me thod Nasal Cannula Room Air Oxygen Flow Rate 1 Labs Labs: Laboratory Results - last 24 hr 10/30/24 10/30/24 10/30/24 16:50 19:04 22:44 WBC 8.39 RBC 3.51 L Hgb 9.2 L 9.1 L Hct 30.4 L MCV 87 MCH 26 MCHC 30 L RDW Coeff of Ivis 16.6 H Plt Count 253 Neut % (Auto) 84.8 H Lymph % (Auto) 9.4 L [place] % (Auto) 4.1 Eos % (Auto) 1.0 Baso % (Auto) 0.6 Neut # (Auto) 7.10 H Lymph # (Auto) 0.80 L [place] # (Auto) 0.30 Eos # (Auto) 0.08 Baso # (Auto) 0.05 Abs Immat Gran (auto) 0.01 Imm/Tot Granulo (auto) 0.1 Absolute Retic Percent Retic Immature Retic Fraction Retic Hgb Equivalent Sodium 136 Potassium 4.3 Chloride 102 Carbon Dioxide 24 Anion Gap 10 BUN 25 Creatinine 0.7 Estimated GFR 83 Glucose 182 H Hemoglobin A1c Lactate 1.3 Calcium 8.7 Magnesium Iron TIBC % Saturation Total Bilirubin Direct Bilirubin AST ALT Alkaline Phosphatase Troponin I < 0.01 L NT-Pro-B Natriuret Pep 1830 Total Protein Albumin TSH Urine Color Urine Appearance Urine pH Ur Specific [place] Urine Protein Urine Glucose (UA) Urine Ketones Urine Blood Urine Nitrite Urine Bilirubin Urine Urobilinogen Ur Leukocyte Esterase Urine RBC Urine WBC Ur Squamous Epith Cells Urine Bacteria SARS-CoV-2 (PCR) Negative SARS-CoV-2 Influenza Type A (PCR) Negative PCR FLU A Influenza Type B (PCR) Negative PCR FLU B RSV (PCR) Negative PCR RSV 10/30/24 10/31/24 Unknown 05:57 WBC 6.67 RBC 3.01 L Hgb 7.9 L* Hct 26.4 L MCV 88 MCH 26 MCHC 30 L RDW Coeff of Ivis 16.8 H Plt Count 213 Neut % (Auto) 67.1 Lymph % (Auto) 20.7 [place] % (Auto) 10.8 Eos % (Auto) 0.6 Baso % (Auto) 0.7 Neut # (Auto) 4.47 Lymph # (Auto) 1.38 [place] # (Auto) 0.70 Eos # (Auto) 0.04 Baso # (Auto) 0.05 Abs Immat Gran (auto) 0.01 Imm/Tot Granulo (auto) 0.1 Absolute Retic 0.09 H Percent Retic 3.0 H Immature Retic Fraction 32.2 H Retic Hgb Equivalent 23.7 L Sodium Potassium Chloride Carbon Dioxide Anion Gap BUN Creatinine Estimated GFR Glucose Hemoglobin A1c 5.8 H Lactate Calcium Magnesium 2.2 Iron 29 L TIBC 412 % Saturation 7 L Total Bilirubin 0.4 Direct Bilirubin 0.0 AST 29 ALT 17 Alkaline Phosphatase 48 Troponin I NT-Pro-B Natriuret Pep Total Protein 6.3 Albumin 3.7 TSH 1.460 Urine Color Yellow Urine Appearance Clear Urine pH 7.5 Ur Specific [place] 1.015 Urine Protein Negative Urine Glucose (UA) 1+ A Urine Ketones Negative Urine Blood Negative Urine Nitrite Negative Urine Bilirubin Negative Urine Urobilinogen 0.2 Ur Leukocyte Esterase Negative Urine RBC 0-2 Urine WBC 0-2 Ur Squamous Epith Cells None Urine Bacteria None SARS-CoV-2 (PCR) Influenza Type A (PCR) Influenza Type B (PCR) RSV (PCR)
[2024-10-31 10:47] LABS: Lactate Dehydrogenase* 347 U/L (120-246)
[2024-10-31] MEDS: DORZOLAMIDE/TIMOLOL 2-0.5% OPHTH 1 DROP EYE-LEFT ×2 (11:15→21:20)
[2024-10-31] MEDS: FUROSEMIDE 10 MG/ML inj IVP (17:42)
--- NOTE | 2024-10-31 18:54 | PC.NURSE ---
The patient is pleasant and cooperative during cares, VSS on RA. No complaints of pain this shift. IV patent in RAC. 1 unit of PRBC was infused today, the patient tolerated this well. 1800 hgb pending. SBA to BR. Echo was complete today as well. No N/V and appetite is reassuring. I encouraged fluid intake, calls appropriately. EGD tomorrow. Tameka OTOOLE BSN
[2024-10-31 19:35] LABS: Hemoglobin* 9.7 gm/dL (12.0-16.0)
[2024-10-31] MEDS: SODIUM CHLORIDE 0.9 % (FLUSH) 10 ML SYRINGE 5 ML IVF (21:21)
[2024-10-31] MEDS: ACETAMINOPHEN 325 MG TABLET 650 MG PO (21:23)
[2024-10-31] MEDS: OMEPRAZOLE 20 MG CAPSULE DR PO (21:24)
[2024-10-31] MEDS: LATANOPROST 0.005% OPHTH 1 DROP EYE-BOTH (21:24)
[2024-10-31] MEDS: SENNOSIDES/DOCUSATE TABLET PO (21:37)
[2024-11-01 00:25] VITALS: PULSE 66; RESP 18
[2024-11-01 03:03] VITALS: BP 132/72; PULSE 73; RESP 18; TEMP 36.6; O2SAT 90
[2024-11-01] MEDS: ACETAMINOPHEN 325 MG TABLET 650 MG PO ×2 (03:11→10:56)
--- NOTE | 2024-11-01 05:33 | PC.NURSE ---
[id number]: A&Ox3. Patient appeared to sleep well during noc. Independent in room. Denies dizziness, lightheadedness, N/V, CP. EGD scheduled at 1400 today. Snack given at 0300. NPO @0600. PRN Tylenol administered for overall body stiffness.
[2024-11-01 06:28] LABS: Basophils Absolute Auto 0.04 K/uL (0.00-0.30); Basophils Percent Auto 0.6 % (0.0-3.0); Eosinophils Absolute Auto 0.22 K/uL (0.00-0.50); Eosinophils Percent Auto 3.2 % (0.0-7.0); Hemoglobin* 9.8 gm/dL (12.0-16.0); Immature Granulocytes Abs Auto 0.01 K/uL (0.00-0.30); Immature Granulocytes Pct Auto 0.1 %; Lymphocytes Percent Auto 19.1 % (20-44); Mean Corpuscular HGB Conc 31 gm/dL (32-36); Mean Corpuscular Hemoglobin 26 pg (26-34); Mean Corpuscular Volume 86 fL (80-100); Monocytes Percent Auto 8.7 % (0.0-11.0); Neutrophils Absolute Auto 4.63 K/uL (1.7-7.0); Neutrophils Percent Auto 68.3 % (42.0-72.0); Platelet Count* 236 K/uL (140-440); RDW Coefficient of Variation % 16.2 % (11.5-15.5); Red Blood Count 3.71 m/uL (4.00-5.20); White Blood Count* 6.79 K/uL (4.50-11.00)
[2024-11-01 06:42] LABS: Albumin* 3.5 g/dL (3.3-5.0); Chloride* 106 mmol/L (96-114)
[2024-11-01 06:43] LABS: Potassium* 4.2 mmol/L (3.6-5.1); Sodium* 137 mmol/L (135-149)
[2024-11-01 06:45] LABS: Anion Gap 8 mEq/L (7-15); Bilirubin Total* 0.4 mg/dL (0.1-1.5); Blood Urea Nitrogen* 29 mg/dL (7-30); Carbon Dioxide* 23 mmol/L (20-32); Creatinine* 0.8 mg/dL (0.5-1.5); Est. Creatinine Clearance* 32.93; Estimated Glomerular Filt Rate 70 ml/min; Total Protein* 6.4 g/dL (6.0-8.3)
[2024-11-01 06:46] LABS: Alanine Aminotransferase* 17 U/L (4-35); Alkaline Phosphatase* 40 U/L (40-150); Aspartate Amino Transferase* 23 U/L (12-35); Calcium* 8.4 mg/dL (8.4-10.6); Glucose* 163 mg/dL (60-115)
[2024-11-01 07:00] VITALS: BP 135/81; PULSE 64; PULSE 71; PULSE 93; RESP 18; TEMP 36.7; O2SAT 88
[2024-11-01 07:07] LABS: Slide Review Reflex No
[2024-11-01] MEDS: SODIUM CHLORIDE 0.9 % (FLUSH) 10 ML SYRINGE 5 ML IVF (08:34)
[2024-11-01] MEDS: DORZOLAMIDE/TIMOLOL 2-0.5% OPHTH 1 DROP EYE-LEFT (08:34)
[2024-11-01] MEDS: OMEPRAZOLE 20 MG CAPSULE DR PO (08:34)
--- NOTE | 2024-11-01 09:06 | PM.IMPN1 ---
Progress Note: A&P Assessment and plan (1) Syncope: Problem details: - presented with LOC on the toilet 10/30, presumed syncope with ddx of viral GI illness, vasovagal source, anemia, valvular disease - telemetry unremarkable, TTE 10/31, blood transfusion ordered 10/31 - therapies following Status: Acute (2) Anemia: Problem details: - new anemia (9.2 on 10/30, Hgb 14 in 2020), normocytic - 7.9 on 10/31, will transfuse 1U PRBCs and continue to follow - FOBT pending, on schedule for EGD 11/01/24 - LDH, Haptoglobin, peripheral smear pending (elevated reticulocyte count 10/30) - holding Apixaban, receiving BID PPI Status: Acute (3) Atrial fibrillation: Problem details: - anticoagulated on Apixaban, doesn't require rate control - repeat TTE ordered Last echocardiogram was September of 2022: Final Impressions: 1. Normal LV size, moderately increased wall thickness, normal global systolic function with an estimated EF of 60 - 65%. 2. Severe biatrial enlargement. 3. The aortic valve is trileaflet and sclerotic, no stenosis and trivial regurgitation. 4. The mitral valve is sclerotic, trace mitral regurgitation. 5. Normal estimated RV systolic (32 mmHg) and RA (3 mmHg) pressures. 6. Color Doppler suggests a possible PFO. Repeat ECHO 10/31/2024: Final Impressions: 1. Normal left ventricular size, normal wall thickness, normal global systolic function, calculated EF of 73 %. 2. Right ventricular cavity size is normal, global systolic RV function is mildly reduced. 3. Severely enlarged left atrium. 4. The aortic valve is trileaflet, no stenosis and mild to moderate regurgitation. 5. The mitral valve is normal, trace mitral regurgitation. 6. 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 7. Trivial pericardial effusion. 8. Color Doppler suggests a left to right atrial level shunt. Status: Acute (4) Dyspnea: Problem details: - acute on chronic dyspnea with exertion, presumably 2/2 anemia. ddx includes CHF, pulmonary HTN, atrial fibrillation Status: Acute (5) Hypoxia: Problem details: - mild, on RA 10/31 - source unclear: reassuring CTA (incidental nodules need outpatient f/u), ddx includes cardiac process or anemia. 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: Noted on both echocardiograms 09/2022 and 10/2024 Followed by [facility] Status: Acute Plan - per above - daughter Zarina updated at bedside, questions answered Exam Const: Vital Signs, click to edit/add: Vital Signs - 24 hr 10/31/24 11:32 10/31/24 11:53 10/31/24 11:53 Temperature 97.7 F 98.5 F 98.4 F Pulse Rate 79 81 69 Pulse Rate [Pulse Oximeter] Respiratory Rate 14 14 14 Blood Pressure 148/62 H 133/72 111/63 Blood Pressure [Le ft Arm] Pulse Oximetry 94 93 93 Oxygen Delivery Me thod Room Air Room Air Room Air 10/31/24 13:05 10/31/24 13:07 10/31/24 13:23 Temperature 98.7 F 98.6 F Pulse Rate 72 72 86 Pulse Rate [Pulse Oximeter] Respiratory Rate 20 14 Blood Pressure 117/58 L 113/58 L Blood Pressure [Le ft Arm] Pulse Oximetry 94 92 93 Oxygen Delivery Me thod Room Air 10/31/24 14:00 10/31/24 15:00 10/31/24 15:00 Temperature 98.2 F 98.4 F Pulse Rate 83 85 82 Pulse Rate [Pulse Oximeter] Respiratory Rate 16 16 Blood Pressure 110/68 142/83 H Blood Pressure [Le ft Arm] Pulse Oximetry 93 93 Oxygen Delivery Me thod Room Air Room Air 10/31/24 21:20 10/31/24 23:13 11/01/24 00:25 Temperature 98.3 F Pulse Rate 84 Pulse Rate [Pulse Oximeter] 72 66 Respiratory Rate 18 18 Blood Pressure Blood Pressure [Le ft Arm] 128/65 Pulse Oximetry 90 Oxygen Delivery Me thod Room Air 11/01/24 03:03 11/01/24 07:00 11/01/24 07:00 Temperature 97.8 F 98.1 F Pulse Rate 64 Pulse Rate [Pulse Oximeter] 73 71 Respiratory Rate 18 18 Blood Pressure Blood Pressure [Le ft Arm] 132/72 135/81 Pulse Oximetry 90 88 Oxygen Delivery Me thod Room Air Room Air Labs Labs: Laboratory Results - last 24 hr 10/31/24 10/31/24 10/31/24 05:57 08:36 10:26 WBC RBC Hgb Hct MCV MCH MCHC RDW Coeff of Ivis Plt Count Neut % (Auto) Lymph % (Auto) [place] % (Auto) Eos % (Auto) Baso % (Auto) Neut # (Auto) Lymph # (Auto) [place] # (Auto) Eos # (Auto) Baso # (Auto) Abs Immat Gran (auto) Imm/Tot Granulo (auto) Sodium Potassium Chloride Carbon Dioxide Anion Gap BUN Creatinine Estimated Creat Clear Estimated GFR Glucose Calcium Total Bilirubin Direct Bilirubin AST ALT Alkaline Phosphatase Lactate Dehydrogenase 347 H Total Protein Albumin Lab Acknowledgement Test Added Blood Type A Positive Antibody Screen NEGATIVE Crossmatch ([facility]) See Detail 10/31/24 11/01/24 18:06 06:03 WBC 6.79 RBC 3.71 L Hgb 9.7 L 9.8 L Hct 32.0 L MCV 86 MCH 26 MCHC 31 L RDW Coeff of Ivis 16.2 H Plt Count 236 Neut % (Auto) 68.3 Lymph % (Auto) 19.1 L [place] % (Auto) 8.7 Eos % (Auto) 3.2 Baso % (Auto) 0.6 Neut # (Auto) 4.63 Lymph # (Auto) 1.30 [place] # (Auto) 0.60 Eos # (Auto) 0.22 Baso # (Auto) 0.04 Abs Immat Gran (auto) 0.01 Imm/Tot Granulo (auto) 0.1 Sodium 137 Potassium 4.2 Chloride 106 Carbon Dioxide 23 Anion Gap 8 BUN 29 Creatinine 0.8 Estimated Creat Clear 32.93 Estimated GFR 70 Glucose 163 H Calcium 8.4 Total Bilirubin 0.4 Direct Bilirubin 0.0 AST 23 ALT 17 Alkaline Phosphatase 40 Lactate Dehydrogenase Total Protein 6.4 Albumin 3.5 Lab Acknowledgement Blood Type Antibody Screen Crossmatch ([facility])
[2024-11-01 11:00] VITALS: BP 167/91; PULSE 93; RESP 18; TEMP 36.6; O2SAT 95
--- NOTE | 2024-11-01 11:58 | P.DS_ITS ---
DS: Providers Provider Date Seen: 11/01/24 Date of admission: 10/30/24 21:34 Primary care physician: Dr. Citlaly Alejandra Admitting Clinician: Adriel Kee MD Consults: 10/30/24 21:37 Consult to Occupational Therapy [CONS] Routine Comment: Reason(s) for OT Consult:: Evaluate and Treat Any Restrictions?:: No Restrictions Consult to Physical Therapy [CONS] Routine Comment: Reason(s) for PT Consult:: Evaluate and Treat Any Restrictions?:: No Restrictions Attending Physician on discharge: JLUIS Kwok, [facility] Date of Discharge: 11/01/24 DS: Diagnosis Discharge Diagnosis (1) Syncope: Status: Acute Problem details: - presented with LOC on the toilet 10/30, presumed syncope with ddx of viral GI illness, vasovagal source, anemia, valvular disease - telemetry unremarkable, TTE 10/31, blood transfusion ordered 10/31 - therapies following Prior to discharge, TTE completed showing tethered tricuspid valve with severe regurgitation change from previous TTE 2022. Telemetry remained unremarkable at rest and with activity. Receive 1 unit PRBC on 10/31, hemoglobin remains stable 9.8 on day of discharge. No further vomiting or diarrhea. Continue with further outpatient workup with PCP, Cardiology, follow-up pending labs. (2) Anemia: Status: Acute Problem details: - new anemia (9.2 on 10/30, Hgb 14 in 2020), normocytic - 7.9 on 10/31, will transfuse 1U PRBCs and continue to follow - FOBT pending, on schedule for EGD 11/01/24 - LDH, Haptoglobin, peripheral smear pending (elevated reticulocyte count 10/30) - holding Apixaban, receiving BID PPI Hemoglobin improved to 9.8, remaining stable, no christian bleeding. No BM so unable to obtain FOBT. EGD completed prior to discharge, results pending. Have asked my colleague to follow up on these results prior to discharge. Continue PPI. Resume apixaban. Close outpatient follow-up with PCP for recheck hemoglobin and pending labs which were sent out. (3) Atrial fibrillation: Status: Acute Problem details: - anticoagulated on Apixaban, doesn't require rate control - repeat TTE ordered Last echocardiogram was September of 2022: Final Impressions: 1. Normal LV size, moderately increased wall thickness, normal global systolic function with an estimated EF of 60 - 65%. 2. Severe biatrial enlargement. 3. The aortic valve is trileaflet and sclerotic, no stenosis and trivial regurgitation. 4. The mitral valve is sclerotic, trace mitral regurgitation. 5. Normal estimated RV systolic (32 mmHg) and RA (3 mmHg) pressures. 6. Color Doppler suggests a possible PFO. Repeat ECHO 10/31/2024: Final Impressions: 1. Normal left ventricular size, normal wall thickness, normal global systolic function, calculated EF of 73 %. 2. Right ventricular cavity size is normal, global systolic RV function is mildly reduced. 3. Severely enlarged left atrium. 4. The aortic valve is trileaflet, no stenosis and mild to moderate regurgitation. 5. The mitral valve is normal, trace mitral regurgitation. 6. 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 7. Trivial pericardial effusion. 8. Color Doppler suggests a left to right atrial level shunt. Significant change in tricuspid valve with noted severe regurgitation since previous echocardiogram. Will follow up with Dr. Haskins, cardiology, in the clinic. (4) Dyspnea: Status: Acute Problem details: - acute on chronic dyspnea with exertion, presumably 2/2 anemia. ddx includes CHF, pulmonary HTN, atrial fibrillation Prior to discharge, improved with ambulation, reporting feeling better, less dyspneic. Continued outpatient evaluation and management with PCP. (5) Hypoxia: Status: Resolved Problem details: - mild, on RA 10/31 - source unclear: reassuring CTA (incidental nodules need outpatient f/u), ddx includes cardiac process or anemia. TTE as above Hypoxia resolved prior to discharge. TTE findings as above. Outpatient follow- up with Cardiology. CT shows Multiple bilateral subpleural nodules, measuring up to 6 mm. Recommend follow-up chest CT in 3-6 months with PCP (6) Vomiting and diarrhea: Status: Resolved Problem details: - noted prior to admission, no recurrence 10/31, advancing diet without any symptoms - possibly cholecystitis on imaging, exam and symptoms not c/w this (likely related to R heart disease) Resolved prior to discharge, no further episodes. (7) Nasal fracture: Status: Acute Problem details: - CT shows mildly displaced bilateral nasal bone fractures, conservative management Outpatient follow-up with PCP for further management options if necessary. 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 Haskins, outpatient follow-up given change in tricuspid valve findings. DS: Summary Hospital Course Hospital Course: [age] year old female was admitted to the medical floor for further workup following syncopal episode. Course of care and details as noted above. Remainder of chronic medical comorbidities were monitored and managed with home medications. Status at Discharge Functional status at discharge: independent ambulation Overall status at discharge: patient is back to baseline Time Spent with Patient Time attestation: Total time spent providing and/or coordinating discharge services: Time spent: Greater than 30 minutes Exam Narrative: Exam Narrative: PHYSICAL EXAM General: Pleasant, conversant, NAD HEENT: Facial bruising noted Cardiovascular: RRR Pulmonary: No dyspnea on room air Neurological: Alert, answering questions appropriately Skin: Warm, dry. Const: Vital Signs, click to edit/add: Vital Signs - 24 hr 10/31/24 13:05 10/31/24 13:07 10/31/24 13:23 Temperature 98.7 F 98.6 F Pulse Rate 72 72 86 Pulse Rate [Pulse Oximeter] Respiratory Rate 20 14 Blood Pressure 117/58 L 113/58 L Blood Pressure [Le ft Arm] Pulse Oximetry 94 92 93 Oxygen Delivery Me thod Room Air 10/31/24 14:00 10/31/24 15:00 10/31/24 15:00 Temperature 98.2 F 98.4 F Pulse Rate 83 85 82 Pulse Rate [Pulse Oximeter] Respiratory Rate 16 16 Blood Pressure 110/68 142/83 H Blood Pressure [Le ft Arm] Pulse Oximetry 93 [facility] 10/31/24 21:20 10/31/24 23:13 11/01/24 00:25 Temperature 98.3 F Pulse Rate 84 Pulse Rate [Pulse Oximeter] 72 66 Respiratory Rate 18 18 Blood Pressure Blood Pressure [Le ft Arm] 128/65 Pulse Oximetry 90 [facility] 11/01/24 03:03 11/01/24 07:00 11/01/24 07:00 Temperature 97.8 F 98.1 F Pulse Rate 64 Pulse Rate [Pulse Oximeter] 73 71 Respiratory Rate 18 18 Blood Pressure Blood Pressure [Le ft Arm] 132/72 135/81 Pulse Oximetry 90 88 Oxygen Delivery Me thod Room Air Room Air 11/01/24 07:00 11/01/24 11:00 Temperature 97.8 F Pulse Rate Pulse Rate [Pulse Oximeter] 93 93 Respiratory Rate 18 18 Blood Pressure Blood Pressure [Le ft Arm] 167/91 H Pulse Oximetry 95 Oxygen Delivery Me thod Room Air DS: Data Data Completed and Pending Pending studies at discharge: Peripheral smear, haptoglobin Labs on day of discharge: Labs from last 24 hours 11/01/24 10/31/24 10/31/24 06:03 18:06 08:36 WBC 6.79 RBC 3.71 L Hgb 9.8 L 9.7 L Hct 32.0 L MCV 86 MCH 26 MCHC 31 L RDW Coeff of Ivis 16.2 H Plt Count 236 Neut % (Auto) 68.3 Lymph % (Auto) 19.1 L [place] % (Auto) 8.7 Eos % (Auto) 3.2 Baso % (Auto) 0.6 Neut # (Auto) 4.63 Lymph # (Auto) 1.30 [place] # (Auto) 0.60 Eos # (Auto) 0.22 Baso # (Auto) 0.04 Abs Immat Gran (auto) 0.01 Imm/Tot Granulo (auto) 0.1 Sodium 137 Potassium 4.2 Chloride 106 Carbon Dioxide 23 Anion Gap 8 BUN 29 Creatinine 0.8 Estimated Creat Clear 32.93 Estimated GFR 70 Glucose 163 H Calcium 8.4 Total Bilirubin 0.4 Direct Bilirubin 0.0 AST 23 ALT 17 Alkaline Phosphatase 40 Total Protein 6.4 Albumin 3.5 Crossmatch ([facility]) See Detail Imaging Gallbladder ultrasound: Attestation: I have reviewed the pertinent imaging results. Radiologist's impression: Gallbladder: No gallstones are visualized. Gallbladder wall thickening is present measuring up to 4 mm. There is trace pericholecystic edema. Negative sonographic Romero`s sign. Common bile duct: 4 mm. Unremarkable limited exam of the common bile duct, without visualized filling defect. IMPRESSION: 1. Gallbladder wall thickening and pericholecystic edema raises concern for acute acalculous cholecystitis; however, sonographic Romero`s sign is negative. Recommend correlation with recent pain medication administration and physical exam. If further imaging is required for problem solving, consider nuclear medicine hepatobiliary imaging. 2. No biliary ductal dilation. Face CT: Attestation: I have reviewed the pertinent imaging results. Radiologist's impression: Streak artifact from dental hardware limits evaluation of the adjacent structures. Small left frontal scalp laceration and mild periorbital soft tissue edema. The orbital santos are intact. Status post bilateral lens removal. The globes are symmetric in size and normal in contour. There is no retrobulbar hematoma. Acute minimally displaced bilateral nasal bone fractures. The zygomatic arches are intact. The santos of the maxillary sinuses are intact. Mild mucosal thickening of the paranasal sinuses. The mastoid air cells remain clear. The pterygoid plates are intact. The nasopharyngeal contours are unremarkable. The mandible and temporomandibular joints are intact. IMPRESSION: Acute mildly displaced bilateral nasal bone fractures. CT Chest/Ab/Pelvis: Attestation: I have reviewed the pertinent imaging results. Radiologist's impression: Cardiovascular structures: Cardiomegaly. Atherosclerotic calcification of the thoracic aorta. The thoracic aorta and main pulmonary artery are normal in caliber. No large pulmonary embolism. Mediastinum and yared: No mass or adenopathy. Lungs and pleura: Multiple bilateral subpleural nodules, measuring up to 6 mm. Scattered subpleural fibrotic changes. Biapical interlobular septal thickening. Chest wall and axilla: No mass or adenopathy. Bones: No suspicious bone lesions. Unremarkable for age. ABDOMEN AND PELVIS: Liver: Unremarkable. Gallbladder and bile ducts: Trace pericholecystic fluid. The gallbladder is otherwise normal in appearance. No stone or common bile ductal dilatation. Mild intrahepatic biliary ductal dilatation. Pancreas: Unremarkable. Spleen: Unremarkable. Adrenal glands: Unremarkable. Kidneys: Unremarkable. GI tract: Unremarkable. Vascular structures: Focal penetrating atherosclerotic ulcer versus ulcerative plaque in the infrarenal abdominal aorta (), unchanged since the prior exam. No aneurysm. Patent mesenteric arteries. Lymph nodes: Unremarkable. Miscellaneous: Unremarkable. No free air or significant free fluid. Pelvic Organs: Unremarkable. Bones: No suspicious bone lesions. Unremarkable for age. IMPRESSION: 1. Trace pericholecystic fluid without other signs for acute cholecystitis. Consider correlation with right upper quadrant ultrasound. 2. Multiple bilateral subpleural nodules, measuring up to 6 mm. Recommend follow-up chest CT in 3-6 months. 3. No other acute findings within the chest, abdomen, or pelvis. 4. Few nonacute findings, as above. CT scan - head: Attestation: I have reviewed the pertinent imaging results. Radiologist's impression: Mild diffuse parenchymal volume loss with commensurate ex vacuo dilatation of the ventricles and sulci. There are nonspecific low attenuation white matter changes consistent with chronic microvascular disease. Bilateral basal ganglia chronic appearing lacunar infarcts. No sign of mass, hemorrhage, or midline shift. Moderate patchy mucosal thickening throughout the paranasal sinuses. The visualized orbits are grossly unremarkable. No skull fractures. IMPRESSION: No acute intracranial findings. CT C-spine: Attestation: I have reviewed the pertinent imaging results. Radiologist's impression: Vertebrae: Alignment is normal. There are no fractures or suspicious bony lesions. T1 inferior endplate Schmorl node. Discs and facet joints: There are degenerative disc changes most severe at C5-6 and C6-7. There are multilevel degenerative changes in the facets. Extraspinal findings: Paraspinous soft tissues are unremarkable. IMPRESSION: 1. No sign of acute injury. 2. Multilevel degenerative spondylosis. Discharge Plan Discharge Disposition: Home, Self-Care Date of Admission: 10/30/24 21:34 Attending Provider on Discharge: Roro [place]a Primary Care Provider: Provider,Not a Local Condition: Improved Anticipated Discharge Date/Time: 11/01/24 16:00 Discharge Medications: New omeprazole 20 mg Capsule,Delayed Release(Dr/Ec) 20 mg PO DAILY Qty: 30 0RF Continued Eliquis 2.5 mg tablet 2.5 mg PO DAILY Patient Comments: [NO ORIGINAL SIG] brimonidine-timolol 0.2-0.5 % drops 1 drp ophthalmic (eye) Q12H Rx Instructions: Place 1 Drop into left eye 2 times daily. latanoprost 0.005 % drops 1 drp ophthalmic (eye) HS lutein-zeaxanthin extract 15-0.7 mg capsule 1 cap PO DAILY Rx Instructions: Take by mouth. [id number] 1 cap PO DAILY Discharge Orders: Discharge Order (Routine); Ordered 11/01/24 Ordered By: Roro [place] Patient Education: Nasal Fracture (GEN), Syncope (GEN), Anemia (GEN) Additional Instructions: Resume taking your Eliquis. Continue to take Omeprazole once daily for 1 month, your PCP can help decide if you need this longer. Outpatient follow-up with your primary care provider - recheck hemoglobin, follow-up on sent out labs done in the hospital, recheck of nasal fracture. Outpatient follow-up with Cardiology, Dr. Haskins, recommended to discuss echocardiogram findings. Your chest CT scan showed pulmonary nodules. Recommend repeat chest CT in 3-6 months. Activity Level: Activity as Tolerated Discharge Diet: Regular Follow Up Appointments: Provider,Not a Local [Primary Care Provider] - Citlaly Vázquez DO [Staff Physician] - (Post hospital follow-up 3-5 days) Forms: [employer] Info Instructions
--- NOTE | 2024-11-01 14:30 | W.ANESCHARGE ---
Anesthesia Charges Start Date/Time Anesthesia Start Date: 11/01/24 Anesthesia Start Time: 14:18 Stop Date/Time Anesthesia Stop Date: 11/01/24 Anesthesia Stop Time: 14:40 Summary Extremes of Age - Over 70 or under 1: MDA Coding CPT Codes CPT Codes: ANES UPR GI NDSC PX NOS - 36401 ([id number]) P2 - PATIENT W/MILD SYST DISEASE, QK - STAFF SUBMARINE WARFARE OFFICER 2-4 CNCRNT ANES PROC, QX - TURKEY PINNER SVC W/ MD MED DIRECTION Additional Codes: Summary - Extremes of Age - Over 70 or under 1: MDA ([id number])
--- NOTE | 2024-11-01 14:34 | W.ANESCHARGE ---
Anesthesia Charges Start Date/Time Anesthesia Start Date: 11/01/24 Anesthesia Start Time: 14:18 Stop Date/Time Anesthesia Stop Date: 11/01/24 Anesthesia Stop Time: 14:40 Summary Extremes of Age - Over 70 or under 1: WIG SALES CONSULTANT Coding CPT Codes CPT Codes: ANES UPR GI NDSC PX NOS - 62121 ([id number]) P2 - PATIENT W/MILD SYST DISEASE, QK - SHEEP SHEARER 2-4 CNCRNT ANES PROC, QX - WIG SALES CONSULTANT SVC W/ MD MED DIRECTION Additional Codes: Summary - Extremes of Age - Over 70 or under 1: WIG SALES CONSULTANT ([id number])
[2024-11-01 15:00] VITALS: BP 155/82; PULSE 78; RESP 18; TEMP 36.7; O2SAT 96
--- NOTE | 2024-11-01 18:00 | PC.NURSE ---
DC: Pt alert, oriented and vitally stable. Pt has pain in back rated 3/10, prn Tylenol given. Pt up independently, tolerates well. Pt NPO since 0600 for procedure today. Tele shows A. fib/A. flutter with NVR. Pt had EGD at 1400, returned around 1500. DC information given to pt and family members, topics including medications, follow up and symptoms worsening. Pt DC home with family at 1651. ?
[2024-11-02 06:59] LABS: Haptoglobin 157 mg/dL (30-200)
== END 2024-11-01 16:51 | disposition home or self-care (01) | DRG 812 ==
LOC: ED 18:05 → MEDSURG 20:15
PROVIDERS: Family Medicine; Admitting Provider Family Medicine; Emergency Provider Emergency Medicine; Visit Provider Family Medicine
DX: D64.9 Anemia, unspecified (principal); Q21.0 Ventricular septal defect; R55 Syncope and collapse; S01.81XA Laceration without foreign body of other part of head, initial encounter; S01.21XA Laceration without foreign body of nose, initial encounter; I48.91 Unspecified atrial fibrillation; Z79.01 Long term (current) use of anticoagulants; R11.2 Nausea with vomiting, unspecified; R19.7 Diarrhea, unspecified; R06.00 Dyspnea, unspecified; R09.02 Hypoxemia; S02.2XXA Fracture of nasal bones, initial encounter for closed fracture; R91.8 Other nonspecific abnormal finding of lung field; E78.5 Hyperlipidemia, unspecified
CPT/HCPCS: 12011; 00731; 36415; 36430; 43235; 70450; 70486; 71260; 72125; 74177; 76705; 80048; 80076; 81001; 82270; 83010; 83036; 83540; 83550; 83605; 83615; 83735; 83880; 84443; 84484; 85018; 85025; 85045; 86850; 86900; 86901; 86922; 87631; 93005; 93306; 97161; 97165; 99100; 99285; A9270; J1200; J1940; J2405; J2704; J2765; J7030; P9016; Q9967

== ENCOUNTER 2024-11-19 13:45 | Outpatient (RCR) | payer OTHER, SELFPAY | END 2025-01-29 13:34 | disposition home or self-care (01) | PROVIDERS: Visit Provider Student in an Organized Health Care Education/Training Program | DX: M25.811 Other specified joint disorders, right shoulder (principal); Z51.89 Encounter for other specified aftercare | CPT/HCPCS: 97110; 97140; 97161 ==

== ENCOUNTER 2024-11-21 02:03 | Outpatient (CLI) | payer OTHER, SELFPAY ==
--- NOTE | 2024-11-26 15:41 | PC.SOCIAL ---
JOSUE called Aba with [facility] - [phone] - and lvm requesting a call back if he still needs contact information for patient.
== END 2024-11-21 02:04 | disposition home or self-care (01) ==
LOC: AMB 11-22 09:23
PROVIDERS: PCP Family Medicine; Visit Provider Family Medicine
DX: R11.0 Nausea (principal)
CPT/HCPCS: A0425; A0427

== ENCOUNTER 2024-11-21 02:41 | Emergency (ER) | payer OTHER, SELFPAY ==
[2024-11-21] VITALS (8 sets, daily range): BP systolic 118–141; BP diastolic 57–79; PULSE 81–89; RESP 14–19; TEMP 36.7; O2SAT 90–96; BMI 21.0
--- OUTSIDE RECORDS SUMMARY | 2024-11-21 02:43 | XMS_ITS | Clinical Summary ---
Author Organization [facility] Address [address] [place] [address] Care Team Providers Care Laborer Name Role Phone Kevin Livingston MD Unavailable Unavailable Citlaly Vázquez DO Primary Care Provider [phone] Allergies Active Allergy Reactions Criticality Noted Date Comments Sulfa (Sulfonamide Antibiotics) 12/04 Medications brimonidine-timol ol (COMBIGAN) 0.2-0.5 % ophthalmic solution Place 1 Drop into left eye 2 times daily. 5 mL 0 0 Active calcium carbonate-vitamin D3 600 mg(1,500mg) -800 unit tab Take by mouth 2 times daily. 0 5 Active te5-oln-ovd-D3-ramy tein-zeazanth (EYE OMEGA ADVANTAGE) 550-250-2.5-0.5 au-oiqp-dz-mg cap Take by mouth. 0 11/03/19 1 6 Active Lutein-Zeaxanthin 15-0.7 mg cap Take by mouth. 0 6 Active latanoprost (XALATAN) 0.005 % ophthalmic solution 8 Active apixaban (Eliquis) 2.5 mg tabletIndications :Paroxysmal atrial fibrillation (HC) Take 1 Tablet (2.5 mg) by mouth two times daily. 180 Tablet 3 4 Active omeprazole (PRILOSEC) 20 mg Delayed-Release capsule Take 1 Capsule by mouth once daily. 5 Active ferrous sulfate 325 mg delayed release tabletIndications :Anemia, unspecified type Take 1 tablet every other day on an empty stomach 90 Tablet 3 5 Active polyethylene glycol-electrolyt e 236-22.74-6.74 -5.86 gram suspensionIndicat ions:Encounter for screening colonoscopy Drink 2 liters the day before the procedure and 2 liters 6 hours prior to procedure. 4000 mL 5 Active Active Problems Problem Noted Date Diagnosed Date Severe tricuspid regurgitation 11/05/2024 Skin lesion of face 02/09/2022 Paroxysmal atrial fibrillation 11/09/2016 Overview (11/09/2016): 30 day event monitor with brief episode of a fib Cardiology consult - ASA per patient choice over other anticoagulant Sensorineural hearing loss, bilateral 10/30/2014 Lipid screening 10/09/2008 Overview (10/17/2011): Normal 10/2009 Last Lipids: Chol: 226 10/14/2010 T 10/14/2010 HDL: 60 10/14/2010 LDL: 146 10/14/2010 LDL DIRECT: healthcare maintenance 10/08/2007 Overview (11/20/2014): Colonoscopy 11/2009 normal repeat in 5 years pap 09/09 Colonoscopy 11/2014 normal, no follow up needed Osteopenia of multiple sites 01/12/2007 Overview (02/05/2020): Started fosmax 2013 due to elevated FRAX score December 2006 Resolved Problems Problem Noted Date Diagnosed Date Resolved Date Protein-calorie malnutrition , unspecified severity 01/03/2022 02/09/2022 Encounters Date Type Department Care Team Description 11/20/2024 11:00 AM CDT Orders Only [facility] [address] [place] [address] Lab, [place] [facility] 11/19/2024 Travel 11/18/2024 Telephone [facility] [address] [facility] INCLUDE [address] BEDS [facility] [place] [address] Serg Kolb MD Screening 11/18/2024 Telephone [facility] [address] [place] [address] Citlaly Vázquez, DO Results 11/16/2024 Travel 11/14/2024 Orders Only [facility] [address] [place] [address] Citlaly Vázquez Ange, DO Lab 11/06/2024 Telephone [facility] [address] [place] [address] Kathie Citlaly Ange, DO Follow Up 11/05/2024 2:10 PM SEWER AND INSPECTOR Office Visit [facility] [address] [place] [address] Kathie Citlaly Ange, DO Hospital F/U (Syncope 10/30/24, follow up hemoglobin, ECHO results) 11/05/2024 Telephone [facility] [address] [place] [address] Mounika Jacinto PA Prior Authorization (GABINO DENIED-APPEAL AVAILABLE [place] CARDIAC MPI STRESS TEST) 11/05/2024 Travel 11/02/2024 Travel 11/01/2024 Orders Only [facility] Scanner 1 scan: (1-Ord) [facility], UPPER GI ENDOSCOPY, 11/01/2024 11/01/2024 Orders Only [facility] Scanner <No scans attached> 11/01/2024 Orders Only [facility] Scanner 1 scan: (1-Ord) [facility], UPPER GI ENDOSCOPY, 11/01/2024 10/31/2024 4:00 PM SEWER AND INSPECTOR Ancillary Procedure [facility] [address] [place] [address] 10/31/2024 Lab Requisition [facility] [phone] Ham Kee MD 10/10/2024 Telephone [facility] [address] [place] [address] Mounika Jacinto PA Questions 10/09/2024 9:30 AM SEWER AND INSPECTOR Office Visit [facility] [address] [place] [address] Mounika Jacinto PA Shoulder Pain/problem (Right shoulder pain, slight improvement about a month ago. Concerns with lifting shoulder) 10/09/2024 Telephone [facility] [address] [place] [address] Ritika Orantes, RN Appointment Reminder 10/08/2024 Travel from Last 3 Months Immunizations Immunization Administration Dates Next Due AMB Influenza, IIV3 (Age >=3 years)(Flu Clinic Only) 06/25/2008 COVID-19 VACCINE COMIRNATY (PFIZER-BIONTECH 30MCG/0.3ML) 12YO+ PFS 06/01/2023 COVID-19 vaccine (Pfizer-Bio NTech 30mcg/0.3mL) 12YO+ BIVALENT PF, MDV 06/27/2022 COVID-19 vaccine (Pfizer-Bio NTech 30mcg/0.3mL) 12YO+ JULIANNA-SUCROSE PF, MDV 12/20/2021 COVID-19 vaccine (Pfizer-Bio NTech 30mcg/0.3mL) PF, MDV 07/21/2021,10/15/2020,09/24/2020 Influenza, High-dose Inactivated 024,05/17/2017,05/25/2016,2014,06/18/2014 Influenza, High-dose Quadriv alent Inactivated 05/09/2023,05/11/2021,05/05/2020 Influenza, IIV3 (Age >=3 years) 06/17/20 13,05/04/2010,06/25/2008,2006,06/19/2006,06/21/2005,06/15/2004,1 ,07/05/2002 Influenza, Inactivated AIIV4 (Age 65+ Years) Preserv Free 05/06/2022 Influenza, Inactivated IIV3 (Age 65+ Years) Preserv Free 05/23/2019 Pneumococcal Poly,23-Valent (Pneumovax) 05/17/2017,10/08/2007 Pneumococcal conj 13-Valent (Prevnar 13) 10/27/2014 Td (Age >=7 Years) 10/03/2005 Tdap 02/22/2024,11/08/2013 Zoster (Shingrix-RZV, recombinant) 01/23/2018, Zoster (Zostavax-ZVL, live) 10/08/2007 Family History Medical History Relation Name Comments Other Brother 2 Multiple Myelom a Other Brother 3 dementia Good Health Brother 4 Jose age 93 Other Father ulcer disease Other Mother dementia Cancer-breast No Family History Cancer-ovarian No Family History Relation Name Status Comments Brother 1 (Age 69) Deann Penn yeloma Brother 2 Brother 3 Brother 4 Jose Father (Age 84) Mother (Age 98) Social History Tobacco Use Types Packs/Day Years Used Date Smoking Tobacco: Never Smokeless Tobacco: Never Tobacco Cessation:Counseling Given: Yes Alcohol Use Standard Drinks/Week Comments No 0 (1 standard drink = 0.6 oz pur e alcohol) PHQ-2 Answer Date Recorded PHQ-2 TOTAL SCORE 0 02/20/2024 Social Connections Answer Date Recorded Frequency of Communication with Friends and Fami ly 0 01/03/2022 Financial Resource Strain Answer Date R ecorded Difficulty of Paying Living Expenses 3 01/03/2022 Difficulty of Paying Living Expenses Not on file 01/03/2022 Food Insecurity Answer Date Recorded Worried About Running Out of Food in the Last Ye ar 1 01/03/2022 Transportation Needs Answer Date Record ed Lack of Transportation (Medical) 1 01/03/2022 Housing Stability Answer Date Recorded Unable to Pay for Housing in the Last Year 1 01/03/2022 Comments No Sex and Gender Information Value Date Recorded Sex Assigned at Not on file Legal Sex Female 6:22 AM SEWER AND INSPECTOR Gender Identity Not on file Sexual Orientation Not on file Occupation Industry Job Start Date Job End Date retired Not on file Not on file Not on file Obstetrics History Para Term AB IAB SAB Ectopic Multiple Livin g Live Births 3 3 3 0 0 0 0 0 0 3 Date Outcome GA Total Labor Labor/2nd/3rd Weight Sex Type Anes PTL Ange A1 A5 Name Clin Term Term Term Last Filed Vital Signs Vital Sign Reading Time Taken Comments Blood Pressure 164/98 11/05/2024 2:17 PM SEWER AND INSPECTOR Pulse 68 11/05/2024 2:17 PM SEWER AND INSPECTOR Temperature 36.5 C (97.7 F) 01/18/2024 1:00 PM CDT Respiratory Rate 16 01/18/2024 1:00 PM CDT Oxygen Saturation 98% 11/05/2024 2:17 PM SEWER AND INSPECTOR Inhaled Oxygen Concentration - - Weight 58.2 kg (128 lb 4.8 oz) 11/05/2024 2:17 P M SEWER AND INSPECTOR Height 161 cm (5' 3.39) 02/20/2024 9:15 AM CDT Body Mass Index 22.45 02/20/2024 9:15 AM CDT Plan of Treatment Upcoming Encounters Date Type Department Care Team (Late st Contact Info) Description 12/06/2024 1:45 PM CDT Office Visit [facility] at [facility] [address] [place] [address] Serg Kolb MD [address] [place] [address] 12/31/2024 1:30 PM CDT Office Visit [facility] [address] [place] [address] Nico Haskins MD [address] [facility] [address] [place] [address] 02/24/2025 10:35 AM CDT Office Visit [facility] [address] [place] [address] Citlaly Vázquez DO [address] [place] [address] Health Maintenance Due Date Last Done Comments RSV vaccine for adults or (1 - 1-dose 75+ series) 2010 COVID-19 vaccine series ( season) 2024 05/23/2024, 06/01/2023, 06/27/2022, Additional history exists BMI (ht and wt on same day) for age 18+ 02/19/2025 02/20/2024, 02/13/2023, 08/19/2022, Additional history exists Depression screening for age 12+ 02/19/2025 02/20/2024, 02/13/2023, 02/09/2022, Additional history exists Medicare Wellness for age 65+ 02/20/2025, 02/13/2023, 02/09/2022, Additional history exists Tetanus booster 02/21/2034 02/22/2024, 03/03/2014, 10/03/2005 Pneumococcal series for age 50+ Completed 05/17/2017, 10/27/2014, 10/08/2007 Zoster (shingles) series for age 50+ Completed 01/23/2018, 11/17/2017, 10/08/2007 Tdap Completed 02/22/2024, 11/08/2013 DEXA/DXA scan for age 65+ Completed 2023, 02/09/2021, 11/21/2016, Additional history exists Influenza Vaccine Completed 05/23/2024, , 05/23/2019, Additional history exists Procedures Procedure Name Priority Date/Time Associated Diagnosis Comments OCCULT BLOOD IFOBT STOOL Routine 11/07/2024 12:00 PM SEWER AND INSPECTOR Anemia, unspecified type Syncope and collapse COMP METABOLIC PANEL Routine 11/05/2024 3:36 PM SEWER AND INSPECTOR Anemia, unspecified type Syncope and collapse CBC WITH AUTO DIFFERENTIAL Routine 11/05/2024 3:36 PM SEWER AND INSPECTOR Anemia, unspecified type Syncope and collapse SCAN-ENDOSCOPY 11/01/2024 12:00 AM SEWER AND INSPECTOR SCAN-ENDOSCOPY 11/01/2024 12:00 AM SEWER AND INSPECTOR SCAN-ENDOSCOPY 11/01/2024 12:00 AM SEWER AND INSPECTOR ECHO TTE COMPLETE WO CONTRAST Routine 10/31/2024 3:47 PM SEWER AND INSPECTOR Dyspnea Syncope LAB TRACKING EVENT Routine 10/31/2024 8: 36 AM SEWER AND INSPECTOR PERIPHERAL BLD MORPHOLOGY Routine 10/31/2024 8:36 AM SEWER AND INSPECTOR XR DXA BONE DENSITY 2 SITES AXIAL Routine 03/11/2024 9:37 AM CDT Post-menopausal from Last 3 Months or Most Recently Relevant to Health Maintenance Results * (ABNORMAL) OCCULT BLOOD IFOBT STOOL (11/07/2024 12:00 PM SEWER AND INSPECTOR) Pathologist [facility] STOOL BLOOD ,IFOBT Positive(A ) Negative 11/15/2024 3:19 PM CDT [facility] Stool STOOL SPECIMEN / Unknown Non-Blood / Unknown 11/07/2024 12:00 PM SEWER AND INSPECTOR 11/14/2024 8:44 PM CDT Citlaly Ange Shivrashaad DO LABORATORY Final Result [facility] [address] [place] [address], * (ABNORMAL) CBC AND DIFFERENTIAL (11/05/2024 3:36 PM SEWER AND INSPECTOR) Pathologist [facility] WHITE BLOOD CELL COUNT 6.6 3.8 - 10.8 Thousand/u L [facility] RED BLOOD CELL COUNT 3.75(L) 3.80 - 5.10 Million/uL [facility] HEMOGLOBIN 10.3(L) 11.7 - 15.5 g/dL [facility] HEMATOCRIT 32.4(L) 35.0 - 45.0 % [facility] MCV 86.4 80.0 - 100.0 fL [facility] MCH 27.5 27.0 - 33.0 pg [facility] MCHC 31.8(L) 32.0 - 36.0 g/dL [facility] Comment: For adults, a slight decrease in the calculated MCHC value (in the range of 30 to 32 g/dL) is most likely not clinically significant; however, it should be interpreted with caution in correlation with other red cell parameters and the patient's clinical condition. RDW 14.3 11.0 - 15.0 % [facility] PLATELET COUNT 266 140 - 400 Thousand/u L [facility] MPV 10.9 7.5 - 12.5 fL [facility] ABSOLUTE NEUTROPHILS 3,736 1,500 - 7,800 cells/uL [facility] ABSOLUTE LYMPHOCYTES 1,696 850 - 3,900 cells/uL [facility] ABSOLUTE MONOCYTES 680 200 - 950 cells/uL [facility] ABSOLUTE EOSINOPHILS 429 15 - 500 cells/uL [facility] ABSOLUTE BASOPHILS 59 0 - 200 cells/uL [facility] NEUTROPHILS 56.6 % [facility] LYMPHOCYTES 25.7 % [facility] MONOCYTES 10.3 % [facility] EOSINOPHILS 6.5 % [facility] BASOPHILS 0.9 % [facility] Blood BLOOD SPECIMEN / Unknown 11/05/2024 3:36 PM SEWER AND INSPECTOR 11/05/2024 3:37 PM SEWER AND INSPECTOR Citlaly Vázquez DO HEMATOLOGY Final Result [employer] [facility] [address] [place] [address], [facility] [address] [place] [address] * (ABNORMAL) COMP METABOLIC PANEL (11/05/2024 3:36 PM SEWER AND INSPECTOR) Pathologist [facility] GLUCOSE 104(H) 65 - 99 mg/dL [facility] Comment: Fasting reference interval For someone without known diabetes, a glucose value between 100 and 125 mg/dL is consistent with prediabetes and should be confirmed with a follow-up test. UREA NITROGEN (BUN) 19 7 - 25 mg/dL [facility] CREATININE 0.71 0.60 - 0.95 mg/dL [facility] EGFR 81 > OR = 60 mL/min/1. 73m2 [facility] BUN/CREATININE RATIO SEE NOTE: 6 - 22 (calc) [facility] Comment: Not Reported: BUN and Creatinine are within reference range. SODIUM 135 135 - 146 mmol/L [facility] POTASSIUM 4.4 3.5 - 5.3 mmol/L [facility] CHLORIDE 100 98 - 110 mmol/L [facility] CARBON DIOXIDE 28 20 - 32 mmol/L [facility] CALCIUM 9.1 8.6 - 10.4 mg/dL [facility] PROTEIN, TOTAL 7.2 6.1 - 8.1 g/dL [facility] ALBUMIN 4.0 3.6 - 5.1 g/dL [facility] GLOBULIN 3.2 1.9 - 3.7 g/dL (calc) [facility] ALBUMIN/GLOBULIN RATIO 1.3 1.0 - 2.5 (calc) [facility] BILIRUBIN, TOTAL 0.4 0.2 - 1.2 mg/dL [facility] ALKALINE PHOSPHATASE 51 37 - 153 U/L [facility] AST 16 10 - 35 U/L [facility] ALT 9 6 - 29 U/L [facility] Blood BLOOD SPECIMEN / Unknown 11/05/2024 3:36 PM SEWER AND INSPECTOR 11/05/2024 3:37 PM SEWER AND INSPECTOR us Citlaly Vázquez DO CHEMISTRY Final Result [facility] [employer] [facility] [address] [place] [address], [facility] [address] [place] [address] * SCAN-ENDOSCOPY (11/01/2024 12:00 AM SEWER AND INSPECTOR) us Scanner OTHER Final Result * SCAN-ENDOSCOPY (11/01/2024 12:00 AM SEWER AND INSPECTOR) us Scanner OTHER Final Result * SCAN-ENDOSCOPY (11/01/2024 12:00 AM SEWER AND INSPECTOR) us Scanner OTHER Final Result * ECHO TTE COMPLETE WO CONTRAST (10/31/2024 3:47 PM SEWER AND INSPECTOR) AORTIC VALVE MEAN PG 3 mmHg EJECTION FRACTION 73 % PEAK TR VELOCITY 3.6 m/s LVEDD 3.2 cm Anatomical Region Laterality Modality Ultrasound 10/31/2024 2:57 PM SEWER AND INSPECTOR Narrative 10/31/2024 4:24 PM SEWER AND INSPECTOR ECHOCARDIOGRAM JENNA VILLAGOMEZ : 1935 89 years Study Date: 10/31/2024 2:57:26 PM Gender: F BP: 117/58 mmHg Height: 160.00 cm BSA: 1.61 m Weight: 59.00 kg Tech: SHELBY Referring MD: HAM KEE Site: [facility] Reading Location: Mobile IP Patient Location: Inpatient. Procedure: 2D, Color Doppler and Spectral Doppler. Indication for study: Dyspnea/ Syncope Cardiac Rhythm: Atrial fibrillation.Study quality: Good. Final Impressions: 1. Normal left ventricular size, normal wall thickness, normal global systolic function, calculated EF of 73 %. 2. Right ventricular cavity size is normal, global systolic RV function is mildly reduced. 3. Severely enlarged left atrium. 4. The aortic valve is trileaflet, no stenosis and mild to moderate regurgitation. 5. The mitral valve is normal, trace mitral regurgitation. 6. 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 7. Trivial pericardial effusion. 8. Color Doppler suggests a left to right atrial level shunt. Chamber Sizes and Function Normal left ventricular size, normal wall thickness, normal global systolic function, calculated EF of 73 %. No resting regional wall motion abnormality visualized. Left atrial size is severely enlarged. Right ventricular cavity size is normal, global systolic RV function is mildly reduced. The right atrium is severely enlarged. Right atrial volume index is 56 ml/m . Right atrial area is 25 cm . The pulmonary artery is of normal size and origin. The sinus of Valsalva is normal sized. The ascending aorta is normal sized. Valves, RV Pressures and Diastolic Function The aortic valve is trileaflet, no stenosis and mild to moderate regurgitation. The mitral valve is normal in structure, trace mitral regurgitation. Spectral Doppler shows Grade 1 pattern of LV diastolic filling. The tricuspid valve is tethered and severe tricuspid regurgitation. The tricuspid regurgitant velocity is 3.6 m/s, the estimated right ventricular systolic pressure is 52 mmHg plus right atrial pressure. The pulmonic valve is normal. No pulmonary regurgitation. TTE images do not appear adequate for transcather intervention with patient supine. Masses, Effusion, Shunts There is trivial pericardial effusion. The inferior vena cava is dilated, respiratory size variation less than 50%. Color flow Doppler suggests a left to right shunt across the interatrial septum. MEASUREMENTS AND CALCULATIONS 2-D Measurements and LV Function: LVID (d) 3.2 cm Planimetered EF 73 % LVID (s) 2.3 cm LV FS% (2D) 30 % IVS (d) 1.0 cm LVOT diameter 2.1 cm LVPW (d) 1.1 cm HR 73 bpm Ao Sinus 3.3 cm LA Vol index 68 ml/m2 Ao Sinus ULN 3.7 cm * RA Vol index 56 ml/m2 Asc Ao 3.7 cm RA area 25 cm Asc Ao ULN 3.9 cm * RV Basal Diam 3.4 cm * Input age outside of range, reported values RV Mid Diam 2.4 cm correspond to Age = 80 Diastology: Mitral Tissue Doppler E Peak 1.6 m/s e', Septum 0.10 m/s e', Lateral 0.11 m/s E/e' Average 15.75 Aortic Valve: Vmax 1.3 m/s AGNIESZKA (V) 2.80 cm AI P 1/2 552 msec VTI 0.30 m AGNIESZKA (I) 2.65 cm AI Vol 19 ml LVOT V max 1.1 m/s Max PG 7 mmHg LVOT VTI 0.23 m Mean PG 3 mmHg SV 79 ml Dim Index 0.78 SV index 49 ml/m CO 5.8 l/min CI 3.6 l/min/m Tricuspid Valve and estimated PA pressures: TR Vmax 3.6 m/s TAPSE 1.5 cm TR maxG 52 mmHg . This study was interpreted by an [facility] accredited facility. CC: HIM (med records) [facility], Med/Surg - IP [facility]. Final Procedure Note Sarah Mcleod, [facility] - 10/31/2024 ECHOCARDIOGRAM JENNA VILLAGOMEZ : 1935 89 years Study Date: 10/31/2024 2:57:26 PM Gender: F BP: 117/58 mmHg Height: 160.00 cm BSA: 1.61 m Weight: 59.00 kg Tech: SHELBY Referring MD: HAM KEE Site: [facility] Reading Location: Mobile IP Patient Location: Inpatient. Procedure: 2D, Color Doppler and Spectral Doppler. Indication for study: Dyspnea/ Syncope Cardiac Rhythm: Atrial fibrillation.Study quality: Good. Final Impressions: 1. Normal left ventricular size, normal wall thickness, normal globalsystolic function, calculated EF of 73 %. 2. Right ventricular cavity size is normal, global systolic RV functionis mildly reduced. 3. Severely enlarged left atrium. 4. The aortic valve is trileaflet, no stenosis and mild to moderateregurgitation. 5. The mitral valve is normal, trace mitral regurgitation. 6. 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 7. Trivial pericardial effusion. 8. Color Doppler suggests a left to right atrial level shunt. Chamber Sizes and Function Normal left ventricular size, normal wall thickness, normal globalsystolic function, calculated EF of 73 %. No resting regional wall motionabnormality visualized. Left atrial size is severely enlarged. Rightventricular cavity size is normal, global systolic RV function is mildlyreduced. The right atrium is severely enlarged. Right atrial volume indexis 56 ml/m . Right atrial area is 25 cm . The pulmonary artery is ofnormal size and origin. The sinus of Valsalva is normal sized. Theascending aorta is normal sized. Valves, RV Pressures and Diastolic Function The aortic valve is trileaflet, no stenosis and mild to moderateregurgitation. The mitral valve is normal in structure, trace mitralregurgitation. Spectral Doppler shows Grade 1 pattern of LV diastolicfilling. The tricuspid valve is tethered and severe tricuspidregurgitation. The tricuspid regurgitant velocity is 3.6 m/s, theestimated right ventricular systolic pressure is 52 mmHg plus right atrialpressure. The pulmonic valve is normal. No pulmonary regurgitation. TTEimages do not appear adequate for transcather intervention with patientsupine. Masses, Effusion, Shunts There is trivial pericardial effusion. The inferior vena cava is dilated,respiratory size variation less than 50%. Color flow Doppler suggests aleft to right shunt across the interatrial septum. MEASUREMENTS AND CALCULATIONS 2-D Measurements and LV Function: LVID (d) 3.2 cm Planimetered EF 73% LVID (s) 2.3 cm LV FS% (2D) 30% IVS (d) 1.0 cm LVOT diameter2.1 cm LVPW (d) 1.1 cm HR 73bpm Ao Sinus 3.3 cm LA Vol index 68ml/m2 Ao Sinus ULN 3.7 cm * RA Vol index 56ml/m2 Asc Ao 3.7 cm RA area 25cm Asc Ao ULN 3.9 cm * RV Basal Diam3.4 cm * Input age outside of range, reported values RV Mid Diam2.4 cm correspond to Age = 80 Diastology: Mitral Tissue Doppler E Peak 1.6 m/s e', Septum 0.10 m/s e', Lateral 0.11 m/s E/e' Average 15.75 Aortic Valve: Vmax 1.3 m/s AGNIESZKA (V) 2.80 cm AI P 1/2 552 msec VTI 0.30 m AGNIESZKA (I) 2.65 cm AI Vol 19 ml LVOT V max 1.1 m/s Max PG 7 mmHg LVOT VTI 0.23 m Mean PG 3 mmHg SV 79 ml Dim Index 0.78 SV index 49 ml/m CO 5.8 l/min CI 3.6 l/min/m Tricuspid Valve and estimated PA pressures: TR Vmax 3.6 m/s TAPSE 1.5 cm TR maxG 52 mmHg . This study was interpreted by an [facility] accredited facility. CC: [facility] (med records) [facility], Med/Surg - IP [facility]. Final us Ham Kee MD ECHO ORD Final Result * LAB TRACKING EVENT (10/31/2024 8:36 AM SEWER AND INSPECTOR) Other (Other) Client Collect / Unknown 10/31/2024 8:36 AM SEWER AND INSPECTOR 10/31/2024 1:12 PM SEWER AND INSPECTOR us Ham Kee MD LAB BILL ONLY Final Result [facility] [address] [place] [address], * PERIPHERAL BLD MORPHOLOGY (10/31/2024 8:36 AM SEWER AND INSPECTOR) Case Report Special Hematology Report Case: [id number] Authorizing Provider: Ham Kee MD Collected: 10/31/2024 0836 Ordering Location: [facility] Received: 10/31/2024 1354 Pathologist: Rafael Lynn MD Specimen: Peripheral Blood 11/01/2024 10:44 AM SEWER AND INSPECTOR [facility] Final Diagnosis PERIPHERAL BLOOD: 1. Moderate normocytic anemia with infrequent schistocytes (0-1 per 100 X/HPF) 2. See comment 11/01/2024 10:44 AM SEWER AND INSPECTOR [facility] Comment The features of the anemia are nonspecific. The differential includes iron deficiency, anemia of chronic disease, anemia of chronic renal insufficiency, anatomic blood loss and medication effect. There is no morphologic evidence to suggest a primary bone marrow disorder. Given the presence of rare schistocytes, consideration could be given to serum LDH and haptoglobin to further evaluate for microangiopathic hemolysis. 11/01/2024 10:44 AM SEWER AND INSPECTOR [facility] Clinical Information The patient is an 89-year-old female. Pertinent clinical information: Anemia. Per EPIC: Additional history includes paroxysmal A-fib. 11/01/2024 10:44 AM SEWER AND INSPECTOR [facility] ENTRAL LABORATORY CBC and Differential HEMATOLOGY PARAMETERS Tested at: [facility] RESULTS EXPECTED VALUES WBC: 6.7 4.5-43w6322/cumm RBC: 3.0 4.00-5.20 mil/cumm DECREASED HGB: 7.9 12-16 gm/dl DECREASED HCT: 26.4 33-51% DECREASED MCV: 87.7 80-100 fl NORMOCYTIC MCH: 26.2 26-34 pg MCHC: 29.9 32-36 gm/dl HYPOCHROMIC RDW: 16.8 11.5-15.5% ELEVATED PLT: 213 [id number]/uL Retic: 3.0 0.5-1.5% ELEVATED Differential Tested at: [facility] Absolute (%) Expected (%) (x10*9/L) (x10*9/L) Neutrophils: 4.47 (67) 1.7-7.0 (42-72%) Lymphocytes: 1.38 (20.7) 0.9-2.9 (20-44%) Monocytes: 0.72 (10.8) <0.9 (0-11%) Eosinophils: 0.04 (.6) <0.5 (0-2%) Basophils: 0.05 (.7) <0.3 (<3.0%) Imm Grans: 0.01 (.1) <0.3 (0-3%) (Metas, Myelos,Pros) 11/01/2024 10:44 AM SEWER AND INSPECTOR [facility]- ENTRAL LABORATORY Reticulocytes Retic: 3.0 0.5-1.5% ELEVATED 11/01/2024 10:44 AM SEWER AND INSPECTOR [facility] Microscopic Description The final diagnosis is based on microscopic examination of an appropriately stained blood smear. 11/01/2024 10:[address] [facility] Additional Information Interpreted at [facility] - [address] [place] [address] 11/01/2024 10:44 AM SEWER AND INSPECTOR [facility] Blood (Peripheral Blood) 10/31/2024 8:36 AM SEWER AND INSPECTOR 10/31/2024 1:59 PM SEWER AND INSPECTOR us Ham Kee MD HEMATOLOGY Final Result [facility] [address] [place] [address], * (ABNORMAL) XR DXA BONE DENSITY 2 SITES AXIAL (03/11/2024 9:37 AM CDT) Anatomical Region Laterality Modality Spine, HIPS, HIPL, HIPR Other Impressions 03/12/2024 12:58 PM CDT Osteopenia. RECOMMENDATIONS: The National Osteoporosis Foundation recommends pharmacologic treatment for patients with T-scores of -2.5 or less, patients with prior history of fragility fractures, or patients with 10-year probability of greater than 3% at hips or greater than 20% of suffering major osteoporotic fractures. Recommend continued optimization of calcium and vitamin D intake through dietary means and/or supplementation and regular exercise. Repeat scan recommended in 3-5 years. Diana Givens PA-C [facility] 03/12/2024 Narrative 03/12/2024 12:58 PM CDT For Patients: Results are automatically released to your [facility] account once available, in compliance with federal regulations. This means that you may see your results before your provider has had a chance to review them. Please allow 2-3 business days for your provider to comment on the results. XR DXA Bone Mineral Density (BMD) EXAM LOCATION: [facility] [address] [facility] [address] PATIENT NAME: Jenna Villagomez DATE OF : 1935 EXAM DATE: 03/11/2024 REQUESTING PROVIDER: Citlaly Vázquez DO GENDER AT : female HEIGHT: 5' 3.39 (02/20/2024) WEIGHT: 124 lb 8 oz (02/20/2024) MENOPAUSAL STATUS: Postmenopausal RACE/ETHNICITY: White RISK FACTORS: Weight < 127 lbs. and White Race CURRENT MEDICATION FOR BONE LOSS: NONE INDICATION: Post-Menopause COMPARISON DATE(S): 2020 DXA scans are compared to prior studies for a patient only when the two (or more) studies were performed on the same scanner. It is not possible to compare data generated on one scanner to data from another because there are not standards in DXA equipment. This applies even if the two scanners are made by the same job press operator. PROCEDURE: Dual-energy x-ray absorptiometry performed with routine technique. Reporting is completed in the form of a T-score. The T-score represents the standard deviation from peak bone mass based on young healthy adult. A Z-score is used for diagnosis in premenopausal women, and for men under the age of 50. FINDINGS: RESULT LUMBAR SPINE L3 - L4 (W/O L1 & L2) BMD: 1.289 g/cm2 T-Score: + 0.7 Z-Score: + 3.0 Change from prior in 2020: Decrease 0.2%. RESULTS FEMUR Left femoral neck BMD: 0.819 g/cm2 T-Score: - 1.6 Z-Score: + 1.2 Change from prior in 2020: Increase 5.7%. Right femoral neck BMD: 0.872 g/cm2 T-Score: - 1.2 Z-Score: + 1.5 Change from prior in 2020: Decrease 0.2%. Left hip BMD: 0.812 g/cm2 T-Score: - 1.6 Z-Score: + 1.1 Change from prior in 2020: Increase 2.1%. Right hip BMD: 0.833 g/cm2 T-Score: - 1.4 Z-Score: + 1.3 Change from prior in 2020: Increase 1.0%. WHO criteria: Normal: T-score at or above -1 SD Osteopenia: T-score between -1.1 and -2.4 SD Osteoporosis: T-score at or below -2.5 SD FRAX RISK CALCULATION (USED FOR OSTEOPENIA ONLY): 10-year probability of major osteoporotic fracture: 10.6%. 10-year probability of hip fracture: 3.3%. 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
--- NOTE | 2024-11-21 03:01 | ED_ITS ---
HPI - General Adult General Chief complaint: Weakness Stated complaint: weakness, nausea Time Seen by Provider: 11/21/24 02:53 History of Present Illness HPI narrative: CC: Weakness, Nausea, Diarrhea pt. was walking to bathroom when she felt weak and laid herself on the floor on called 911. c/o nausea. incontinent of urine. denies fevers, vomiting. 89-year-old woman presenting to the emergency department via EMS after feeling weak. Received 4 mg of Zofran in route. She has had diarrhea here in the emergency department. Has had diarrhea at home per EMS but she does not seem to recall this. Denies that she has been having diarrhea since discharge from this facility 3 weeks ago. Nausea but has not been vomiting. Was walking to the bathroom when she felt weak instead of falling decided to lay herself down on the floor. Then called 911 when she was feeling too weak to get up. Denies hitting her head. Denies neck or back pain. No chest pain. No cough or cold symptoms. No sense of palpitations but she notes that she does have a history of atrial fibrillation. No fever. Noting that she is cold. Denies abdominal pain. Was admitted to this facility 3 weeks ago will following apparent syncopal event and head injury. She was noted to have sustained mildly displaced nasal bone fractures and had a laceration to the left forehead. Was discharged after extensive evaluation. Did have a transthoracic echocardiogram showing to the tricuspid valve and severe regurgitation. Left to right atrial shunt. EF of 73%. Follow-up with cardiology. Was noted altered to be anemic and did receive a unit of packed cells and hemoglobin was 9.8 on discharge. Apixaban was restarted. Primary complaint later seems to be nausea. Related Data Home Medications ?Medication ?Instructions ?Recorded ?Confirmed apixaban 2.5 mg tablet (Eliquis) 2.5 mg PO DAILY 10/30/24 11/21/24 brimonidine 0.2 %-timolol 0.5 % 1 drp ophthalmic (eye) Q12H 10/30/24 11/21/24 eye drops latanoprost 0.005 % eye drops 1 drp ophthalmic (eye) HS 10/30/24 11/21/24 lutein 15 mg-zeaxanthin extract 1 cap PO DAILY 10/30/24 11/21/24 0.7 mg capsule ferrous sulfate 324 mg (65 mg 324 mg PO Q1D 11/21/24 11/21/24 iron) tablet,delayed release Previous Rx's ?Medication ?Instructions ?Recorded omeprazole 20 mg capsule,delayed 20 mg PO DAILY #30 caps 11/01/24 release Allergies Allergy/AdvReac Type Severity Reaction Status Date / Time Sulfa (Sulfonamide Allergy Verified 11/21/24 02:52 Antibiotics) Review of Systems Status of ROS: Reports: 6 or more systems reviewed and unremarkable except as noted in History and below [facility] Medical History 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) Facial laceration ?S01.81XA - Laceration without foreign body of other part of head, initial encounter (ICD-10) Nasal fracture ?S02.2XXA - Fracture of nasal bones, initial encounter for closed fracture (ICD-10) Dyslipidemia ?E78.5 - Hyperlipidemia, unspecified (ICD-10) Sensorineural hearing loss (SNHL) of both ears ?H90.3 - Sensorineural hearing loss, bilateral (ICD-10) Normal colonoscopy Anemia ?D64.9 - Anemia, unspecified (ICD-10) Hypoxia ?R09.02 - Hypoxemia (ICD-10) Dyspnea ?R06.00 - Dyspnea, unspecified (ICD-10) Syncope ?R55 - Syncope and collapse (ICD-10) Osteopenia ?M85.80 - Other specified disorders of bone density and structure, unspecified site (ICD-10) Atrial fibrillation ?I48.91 - Unspecified atrial fibrillation (ICD-10) Surgical History History of cataract extraction with lens replacement H/O vein stripping ?Z98.890 - Other specified postprocedural states (ICD-10) History of D&C ?Z98.890 - Other specified postprocedural states (ICD-10) History of appendectomy ?Z90.49 - Acquired absence of other specified parts of digestive tract (ICD- 10) Family History Brother Multiple myeloma Dementia Father Gastrointestinal ulcer Mother Dementia Social History Narrative: She lives independently in her own home in [place]. She has family that lives nearby that is helpful to her. She walks independently without assistive device. She mows her own lawn. She does her own cooking. She drives a car. She has 3 daughters and she designates all of them to be healthcare power of assistant district attorney. Her daughter Zarina Villagomez is a physician in [place]. Code status is DNR. What is your current living situation?: I presently have a place to live Problems where you live: no known problems Problems where you live details: no problems In the past 12 months, utilities in danger of being shut off: no In past 12 months, lack of transportation kept you from medical appts, meetings, work, or getting things needed for daily living: no In the past 12 mos, have been you worried that your food would run out before you had money to buy more?: never true In the past 12 mos, the food you bought just didn't last and you didn't have money to buy more?: never true Smoking Status: Never smoker How often do you have a drink containing alcohol: never How often do you have six or more drinks on one occasion: Never AUDIT-C Alcohol total score: 0 Non-prescribed substance use: denies use How often does anyone, including family, friends and others, physically hurt you : never How often does anyone, including family, friends and others, insult or talk down to you: never How often does anyone, including family, friends and others, threaten you with harm: never How often does anyone, including family, friends and others, scream or curse at you: never service: No Exam Narrative: Exam Narrative: Pleasant. Emesis bag at hand. Fully alert. Cranial nerves 2-12 are intact. Pupils are 3 mm and equal. Mouth is sticky with whitish spittle. Left brow with subcentimeter laceration looks to have been closed with Dermabond prior. I do not see new injury on her head. No fluid external ear canals. No pain to palpation of neck or back. Lungs are clear. Heart in irregularly irregular rhythm and not rapid. Distant. Abdomen is soft present bowel sounds and nontender. Extremities are without edema. Is moving all extremities without difficulty. Does seem tired. Initially I find her crawled up a little bit down lying on her right side. Const: Vital Signs, click to edit/add: Vital Signs - 24 hr 11/21/24 02:49 11/21/24 03:11 11/21/24 03:19 Temperature 98.0 F Pulse Rate 88 Pulse Rate [Right Pulse Oximeter] 82 Pulse Rate [orthos tatic lying Right Pulse Oximeter] Pulse Rate [orthos tatic sitting Righ t Pulse Oximeter] Pulse Rate [orthos tatic standing Rig ht Pulse Oximeter] Respiratory Rate 16 19 Blood Pressure 118/78 Blood Pressure [Le ft Upper Arm] 141/79 H Blood Pressure [or thostatic lying Le ft Arm] Blood Pressure [or thostatic sitting Left Arm] Blood Pressure [or thostatic standing Left Arm] Pulse Oximetry 94 96 94 Oxygen Delivery Me thod Room Air 11/21/24 03:32 11/21/24 04:09 11/21/24 04:14 Temperature Pulse Rate 81 Pulse Rate [Right Pulse Oximeter] Pulse Rate [orthos tatic lying Right Pulse Oximeter] 83 Pulse Rate [orthos tatic sitting Righ t Pulse Oximeter] 87 Pulse Rate [orthos tatic standing Rig ht Pulse Oximeter] 89 Respiratory Rate 14 Blood Pressure 139/66 127/70 Blood Pressure [Le ft Upper Arm] Blood Pressure [or thostatic lying Le ft Arm] 125/57 L Blood Pressure [or thostatic sitting Left Arm] 125/73 Blood Pressure [or thostatic standing Left Arm] 127/70 Pulse Oximetry 90 Oxygen Delivery Me thod 11/21/24 06:36 11/21/24 06:42 Temperature 98.0 F Pulse Rate 89 Pulse Rate [Right Pulse Oximeter] 89 Pulse Rate [orthos tatic lying Right Pulse Oximeter] Pulse Rate [orthos tatic sitting Righ t Pulse Oximeter] Pulse Rate [orthos tatic standing Rig ht Pulse Oximeter] Respiratory Rate 16 16 Blood Pressure 124/71 Blood Pressure [Le ft Upper Arm] 124/71 Blood Pressure [or thostatic lying Le ft Arm] Blood Pressure [or thostatic sitting Left Arm] Blood Pressure [or thostatic standing Left Arm] Pulse Oximetry 94 94 Oxygen Delivery Me thod Room Air Documenting provider has reviewed patient's vital signs: yes Course Vital Signs Vital signs: Initial Vital Signs Temperature 98.0 F 11/21/24 02:49 Temperature Source Temporal Artery Scan 11/21/24 02:49 Pulse Rate 82 11/21/24 02:49 Pulse Rhythm Irregular 11/21/24 02:49 Pulse Strength 3+ Normal 11/21/24 02:49 Respiratory Rate 16 11/21/24 02:49 Blood Pressure 141/79 H 11/21/24 02:49 Blood Pressure Mean 99 11/21/24 02:49 Blood Pressure Position Sitting 11/21/24 02:49 Pulse Oximetry 94 11/21/24 02:49 Oxygen Delivery Method Room Air 11/21/24 02:49 Vital Signs Temperature 98.0 F 11/21/24 02:49 Pulse Rate 82 11/21/24 02:49 Respiratory Rate 16 11/21/24 02:49 Blood Pressure 141/79 H 11/21/24 02:49 Pulse Oximetry 94 11/21/24 02:49 Oxygen Delivery Method Room Air 11/21/24 02:49 Temperature 98.0 F 11/21/24 06:42 Pulse Rate 89 11/21/24 06:42 Respiratory Rate 16 11/21/24 06:42 Blood Pressure 124/71 11/21/24 06:42 Pulse Oximetry 94 11/21/24 06:42 Oxygen Delivery Method Room Air 11/21/24 06:42 Medications Administered Medications: Discontinued Medications Generic Name Dose Route Start Last Admin Trade Name Freq PRN Reason Stop Dose Admin Sodium Chloride 1,000 mls @ 1,000 mls/hr 11/21/24 03:10 11/21/24 04:17 0.9 % Sodium Chloride 1000 Ml IV 11/21/24 04:09 Infused .Q1H ONE Infusion Metoclopramide HCl 10 mg/ 102 mls @ 306 mls/hr 11/21/24 04:22 11/21/24 05:01 Sodium Chloride IVPB 11/21/24 04:23 Infused ONCE ONE Infusion Medical Decision Making MDM Narrative Medical decision making narrative: Was cleaned of diarrheal stool here. Reviewing records I do not see that any stool culture or C diff was collected at prior visit. I am unaware of preceding antibiotics. Considering prior visit and with reported diarrhea I would initiate some IV hydration. Check electrolytes and repeat hemoglobin. Monitor on youth nutritional monitor for concerning arrhythmia. Check orthostatics EKG independently reviewed by me shows what looks to be a flutter in some ways I think actually is atrial fibrillation at a rate of 84. There is similar to prior EKG. Orthostatics are WNL and asymptomatic. Has been up ambulating to and from the bathroom without apparent difficulty. Is complaining of continued nausea. She has not actually vomited here. Ordered for metoclopramide. Labs are reassuring. Hemoglobin 9.4. No electrolyte abnormalities. Blood sugar of 177 After metoclopramide still with some nausea. I have encouraged attempted some oral intake. She has been sleeping however with this complaint. Wonder this episode was contributed to by findings on cardiac echo as reported at last visit. Severe tricuspid regurgitation and left to right atrial shunt. 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 She had gone down stairs to the basement to check can had come up stairs than feeling more short of breath. Sat down in a chair and then fell like she was just going to be unwell I believe she is referring to feeling of needing to have a bowel movement. Went to the bathroom then feeling weak then laid herself down. Was aware that she had had a diarrheal stool. Sounds as though eats daily bran and prunes to maintain regularity. Perhaps there was some vasovagal component? When unwell nausea is historically a prime component Has been stable through time in the emergency department. Allowed to sleep. Daughter currently encouraging saltine intake and Mrs. Villagomez asked for some water. I am anticipating discharge to family. See patient discharge plan for further discussion It sounds like you might need to back off your bowel regimen just a little bit? Stay well-hydrated. Consider a slow advance of diet over the next 24-36 hours. Diluted juices, soup broth, crackers, rice, toast. Take good care in transitions. Please follow-up with scheduled Cardiology and colonoscopy. Am prescribing Zofran from [facility] if you need for nausea. Return as needed. Medical Records Medical records reviewed: Yes I reviewed the patient's medical records Lab Data Lab results reviewed: Yes I reviewed the patient's lab results Labs: Lab Results 11/21/24 11/21/24 11/21/24 Range/Units 02:46 03:15 04:20 WBC 7.59 (4.50-11.00) K/uL RBC 3.56 L (4.00-5.20) m/uL Hgb 9.4 L (12.0-16.0) gm/dL Hct 30.3 L (33.0-51.0) % MCV 85 (80-100) fL MCH 26 (26-34) pg MCHC 31 L (32-36) gm/dL RDW Coeff of Ivis 17.0 H (11.5-15.5) % Plt Count 270 (140-440) K/uL Neut % (Auto) 87.2 H (42.0-72.0) % Lymph % (Auto) 8.6 L (20-44) % [place] % (Auto) 3.3 (0.0-11.0) % Eos % (Auto) 0.1 (0.0-7.0) % Baso % (Auto) 0.7 (0.0-3.0) % Neut # (Auto) 6.60 (1.7-7.0) K/uL Lymph # (Auto) 0.70 L (0.90-2.90) K/uL [place] # (Auto) 0.30 (0.00-0.90) K/UL Eos # (Auto) 0.01 (0.00-0.50) K/uL Baso # (Auto) 0.05 (0.00-0.30) K/uL Abs Immat Gran (auto) 0.01 (0.00-0.30) K/uL Imm/Tot Granulo (auto) 0.1 % Sodium 137 (135-149) mmol/L Potassium 4.1 (3.6-5.1) mmol/L Chloride 100 (96-114) mmol/L Carbon Dioxide 27 (20-32) mmol/L Anion Gap 10 (7-15) mEq/L BUN 20 (7-30) mg/dL Creatinine 0.5 (0.5-1.5) mg/dL Estimated Creat Clear 34.32 Estimated GFR 90 ml/min Glucose 177 H (60-115) mg/dL Calcium 9.1 (8.4-10.6) mg/dL Magnesium 2.0 (1.5-2.6) mg/dL C-Reactive Protein 0.8 (0.5-1.0) mg/dL Urine Color Yellow (Yellow) Urine Appearance Slightly Cloudy A (Clear) Urine pH 7.5 (5.0-8.5) Ur Specific [place] 1.015 (1.000-1.030) Urine Protein Negative (Negative) Urine Glucose (UA) 1+ A (Negative) Urine Ketones Negative (Negative) Urine Blood Negative (Negative) Urine Nitrite Negative (Negative) Urine Bilirubin Negative (Negative) Urine Urobilinogen 0.2 (0.2-1.0) Ur Leukocyte Esterase Negative (Negative) Urine RBC 0-2 (0-2) Urine WBC 0-2 (0-5) Ur Squamous Epith Cells Few (None-Few) Urine Bacteria Moderate A (None) SARS-CoV-2 (PCR) Negative SARS-CoV-2 (Negative) Influenza Type A (PCR) Negative PCR FLU A (Negative) Influenza Type B (PCR) Negative PCR FLU B (Negative) RSV (PCR) Negative PCR RSV (Negative) Discharge Plan Discharge Clinical Impression: Diarrhea, Weakness Patient Disposition: Home w/ Parent or Adult Condition: Improved Additional Instructions: It sounds like you might need to back off your bowel regimen just a little bit? Stay well-hydrated. Consider a slow advance of diet over the next 24-36 hours. Diluted juices, soup broth, crackers, rice, toast. Take good care in transitions. Please follow-up with scheduled Cardiology and colonoscopy. Am prescribing Zofran from [facility] if you need for nausea. Return as needed. Prescriptions: No Action Eliquis 2.5 mg tablet 2.5 mg PO DAILY Patient Comments: [NO ORIGINAL SIG] brimonidine-timolol 0.2-0.5 % drops 1 drp ophthalmic (eye) Q12H Rx Instructions: Place 1 Drop into left eye 2 times daily. latanoprost 0.005 % drops 1 drp ophthalmic (eye) HS lutein-zeaxanthin extract 15-0.7 mg capsule 1 cap PO DAILY Rx Instructions: Take by mouth. omeprazole 20 mg Capsule,Delayed Release(Dr/Ec) 20 mg PO DAILY Qty: 30 0RF ferrous sulfate 324 mg (65 mg iron) tablet,delayed release (DR/EC) 324 mg PO Q1D Follow Up/Referrals: Provider,Not a Local [Non-Staff] - Stand Alone Forms: Tablelist Incth Info Instructions
[2024-11-21] MEDS: 0.9 % SODIUM CHLORIDE 1000 ml 1,000 ML IV (03:16)
[2024-11-21 03:20] LABS: Basophils Absolute Auto 0.05 K/uL (0.00-0.30); Basophils Percent Auto 0.7 % (0.0-3.0); Eosinophils Absolute Auto 0.01 K/uL (0.00-0.50); Eosinophils Percent Auto 0.1 % (0.0-7.0); Hematocrit 30.3 % (33.0-51.0); Hemoglobin* 9.4 gm/dL (12.0-16.0); Immature Granulocytes Abs Auto 0.01 K/uL (0.00-0.30); Immature Granulocytes Pct Auto 0.1 %; Lymphocytes Percent Auto 8.6 % (20-44); Mean Corpuscular HGB Conc 31 gm/dL (32-36); Mean Corpuscular Hemoglobin 26 pg (26-34); Mean Corpuscular Volume 85 fL (80-100); Monocytes Percent Auto 3.3 % (0.0-11.0); Neutrophils Percent Auto 87.2 % (42.0-72.0); Platelet Count* 270 K/uL (140-440); Red Blood Count 3.56 m/uL (4.00-5.20); White Blood Count* 7.59 K/uL (4.50-11.00)
[2024-11-21 03:25] LABS: Slide Review Reflex No
[2024-11-21 03:29] LABS: PCR FLU A Negative PCR FLU A (Negative); PCR FLU B Negative PCR FLU B (Negative); PCR RSV Negative PCR RSV (Negative); SARS PCR* Negative SARS-CoV-2 (Negative)
[2024-11-21 03:32] LABS: Chloride* 100 mmol/L (96-114); Potassium* 4.1 mmol/L (3.6-5.1); Sodium* 137 mmol/L (135-149)
[2024-11-21 03:35] LABS: Blood Urea Nitrogen* 20 mg/dL (7-30); Creatinine* 0.5 mg/dL (0.5-1.5); Est. Creatinine Clearance* 34.32; Estimated Glomerular Filt Rate 90 ml/min
[2024-11-21 03:36] LABS: Anion Gap 10 mEq/L (7-15); Calcium* 9.1 mg/dL (8.4-10.6); Carbon Dioxide* 27 mmol/L (20-32); Glucose* 177 mg/dL (60-115)
[2024-11-21 03:38] LABS: C Reactive Protein* 0.8 mg/dL (0.5-1.0)
--- OUTSIDE RECORDS SUMMARY | 2024-11-21 03:40 | XMS_ITS | Clinical Summary ---
Author Organization [employer] [facility] [employer] [facility] Address [address] [place] [address] Care Team Providers Care Vendor Analyst Name Role Phone Kevin Livingston MD Unavailable Unavailable Citlaly Vázquez DO Primary Care Provider [phone] Allergies Active Allergy Reactions Criticality Noted Date Comments Sulfa (Sulfonamide Antibiotics) 12/04 Medications brimonidine-timol ol (COMBIGAN) 0.2-0.5 % ophthalmic solution Place 1 Drop into left eye 2 times daily. 5 mL 0 0 Active calcium carbonate-vitamin D3 600 mg(1,500mg) -800 unit tab Take by mouth 2 times daily. 0 5 Active fn7-mwg-huy-D3-ramy tein-zeazanth (EYE OMEGA ADVANTAGE) 550-250-2.5-0.5 wf-clyu-zp-mg cap Take by mouth. 0 11/03/19 1 [...] Description 11/20/2024 11:00 AM CDT Orders Only [facility] [address] [place] [address] Lab, [place] [facility] 11/19/2024 Travel 11/18/2024 Telephone [facility] [address] [facility] [place] [address] Serg Kolb MD Screening 11/18/2024 Telephone [facility] [address] [place] [address] Citlaly Vázquez, DO Results 11/16/2024 Travel 11/14/2024 Orders Only [facility] [address] [place] [address] Citlaly Vázquez Ange, DO Lab 11/06/2024 Telephone [facility] [address] [place] [address] Kathie Citlaly Ange, DO Follow Up 11/05/2024 2:10 PM [facility] Office Visit [facility] [address] [place] [address] Kathie Citlaly Ange, DO Hospital F/U (Syncope 10/30/24, follow up hemoglobin, ECHO results) 11/05/2024 Telephone [facility] [address] [place] [address] Mounika Jacinto PA Prior Authorization (GABINO DENIED-APPEAL AVAILABLE [place] CARDIAC MPI STRESS TEST) 11/05/2024 Travel 11/02/2024 Travel 11/01/2024 Orders Only [facility] Scanner 1 scan: (1-Ord) [facility], 11/01/2024 11/01/2024 Orders Only [facility] Scanner <No scans attached> 11/01/2024 Orders Only [facility] Scanner 1 scan: (1-Ord) [facility], 11/01/2024 10/31/2024 4:00 PM [facility]ER Ancillary Procedure [facility] [address] [place] [address] 10/31/2024 Lab Requisition [facility] [phone] Ham Kee MD 10/10/2024 Telephone [facility] [address] [place] [address] Mounika Jacinto PA Questions 10/09/2024 9:30 AM [facility] Office Visit [facility] [address] [place] [address] Mounika Jacinto PA Shoulder Pain/problem (Right shoulder pain, slight improvement about a month ago. Concerns with lifting shoulder) 10/09/2024 Telephone [facility] [address] [place] [address] Ritika Orantes, RN Appointment Reminder 10/08/2024 Travel [...] on file Legal Sex Female 6:22 AM HAY BUCKLER Gender Identity Not on file Sexual Orientation [...] Comments Blood Pressure 164/98 11/05/2024 2:17 PM [facility]AY [facility]CKLER Pulse 68 11/05/2024 2:17 PM [facility]ER Temperature 36.5 C (97.7 F) 01/18/2024 1:00 PM CDT Respiratory Rate 16 01/18/2024 1:00 PM CDT Oxygen Saturation 98% 11/05/2024 2:17 PM [facility] BUCKLER Inhaled Oxygen Concentration - - Weight 58.2 kg (128 lb 4.8 oz) 11/05/2024 2:17 P M HAY [facility]CKLER Height 161 cm (5' 3.39) 02/20/2024 9:15 AM CDT Body Mass Index 22.45 02/20/2024 9:15 AM CDT Plan of Treatment Upcoming Encounters Date Type Department Care Team (Late st Contact Info) Description 12/06/2024 1:45 PM CDT Office Visit [facility] at [facility] [address] [place] [address] Serg Kolb MD [address] [place] [address] 12/31/2024 1:30 PM CDT Office Visit [facility] [address] [place] [address] Nico Haskins MD [address] [facility] [address] [place] [address] 02/24/2025 10:35 AM CDT Office Visit [facility] [address] [place] [address] Citlaly Vázquez DO [address] [place] [address] Health Maintenance Due Date Last Done Comments [...] Additional history exists Tetanus booster 02/21/2034 02/22/2024, 03/0 03/2014, 10/03/2005 Pneumococcal series for age 50+ Completed 05/17/2017, 10/27/2014, 10/08/2007 Zoster (shingles) series for age 50+ Completed 01/23/2018, 11/17/2017, 10/08/2007 Tdap Completed 02/22/2024, 11/08/2013 DEXA/DXA scan for age 65+ Completed 2023, 02/09/2021, 11/21/2016, Additional history exists Influenza Vaccine Completed 05/23/2024, , 05/23/2019, Additional history exists Procedures Procedure Name Priority Date/Time Associated Diagnosis Comments CBC WITH AUTO DIFFERENTIAL Routine 11/20/2024 10:44 AM CDT Anemia, unspecified type Syncope and collapse OCCULT BLOOD IFOBT STOOL Routine 11/07/2024 12:00 PM [facility]ER Anemia, unspecified type Syncope and collapse COMP METABOLIC PANEL Routine 11/05/2024 3:36 PM [facility]ER Anemia, unspecified type Syncope and collapse CBC WITH AUTO DIFFERENTIAL Routine 11/05/2024 3:36 PM [facility]ER Anemia, unspecified type Syncope and collapse SCAN-ENDOSCOPY 11/01/2024 12:00 AM [facility]ER SCAN-ENDOSCOPY 11/01/2024 12:00 AM [facility] SCAN-ENDOSCOPY 11/01/2024 12:00 AM [facility]ER ECHO TTE COMPLETE WO CONTRAST Routine 10/31/2024 3:47 PM [facility]ER Dyspnea Syncope LAB TRACKING EVENT Routine 10/31/2024 8: 36 AM [facility]ER PERIPHERAL BLD MORPHOLOGY Routine 10/31/2024 8:36 AM [facility] XR DXA BONE DENSITY 2 SITES AXIAL Routine 03/11/2024 9:37 AM CDT Post-menopausal from Last 3 Months or Most Recently Relevant to Health Maintenance Results * (ABNORMAL) CBC AND DIFFERENTIAL (11/20/2024 10:44 AM CDT) Only the most recent of2 resultswithin the time period is included. WHITE BLOOD CELL COUNT 6.2 3.8 - 10.8 Thousand/u L [facility] RED BLOOD CELL COUNT 3.44(L) 3.80 - 5.10 Million/uL [facility] HEMOGLOBIN 9.2(L) 11.7 - 15.5 g/dL [facility] HEMATOCRIT 29.6(L) 35.0 - 45.0 % [facility] MCV 86.0 80.0 - 100.0 fL [facility] MCH 26.7(L) 27.0 - 33.0 pg [facility] MCHC 31.1(L) 32.0 - 36.0 g/dL [facility] Comment: For adults, a slight decrease in the calculated MCHC value (in the range of 30 to 32 g/dL) is most likely not clinically significant; however, it should be interpreted with caution in correlation with other red cell parameters and the patient's clinical condition. RDW 14.6 11.0 - 15.0 % [facility] PLATELET COUNT 278 140 - 400 Thousand/u L [facility] MPV 11.2 7.5 - 12.5 fL [facility] ABSOLUTE NEUTROPHILS 3,596 1,500 - 7,800 cells/uL [facility] ABSOLUTE LYMPHOCYTES 1,618 850 - 3,900 cells/uL [facility] ABSOLUTE MONOCYTES 670 200 - 950 cells/uL [facility] ABSOLUTE EOSINOPHILS 279 15 - 500 cells/uL [facility] ABSOLUTE BASOPHILS 37 0 - 200 cells/uL [facility] NEUTROPHILS 58 % [facility] LYMPHOCYTES 26.1 % [facility] MONOCYTES 10.8 % [facility] EOSINOPHILS 4.5 % [facility] BASOPHILS 0.6 % [facility] Blood BLOOD SPECIMEN / Unknown 11/20/2024 10:44 AM CDT 11/20/2024 10:44 AM CDT Citlaly Vázquez DO HEMATOLOGY Final Result Performing Organization Address City/[facility]/ZIP Co de Phone Number [facility] [address] [place] [address], [place] [phone] [facility] [address] [place] [address] * (ABNORMAL) OCCULT BLOOD IFOBT STOOL (11/07/2024 12:00 PM [facility]AY [facility]LER) STOOL BLOOD ,IFOBT Positive(A ) Negative 11/15/2024 3:19 PM CDT [facility] Stool STOOL SPECIMEN / Unknown Non-Blood / Unknown 11/07/2024 12:00 PM [facility]ER 11/14/2024 8:44 PM CDT Citlaly Vázquez DO LABORATORY Final Result Performing Organization Address City/[facility]/ZIP Co de Phone Number [facility] [address] [place] [address], * (ABNORMAL) COMP METABOLIC PANEL (11/05/2024 3:36 PM [facility]AY [facility]LER) GLUCOSE 104(H) 65 - 99 mg/dL [facility] Comment: Fasting reference interval For [...] [facility] BUN/CREATININE RATIO SEE NOTE: 6 (calc) [facility] Comment: Not [...] BLOOD SPECIMEN / Unknown 11/05/2024 3:36 PM [facility]ER 11/05/2024 3:37 PM [facility]AY BUCKLER us Citlaly Vázquez DO CHEMISTRY Final Result [facility] [address] [place] [address], [place] [phone] [facility] [address] [place] [address] * SCAN-ENDOSCOPY (11/01/2024 12:00 AM HAY BUCKLER) us Scanner OTHER Final Result * SCAN-ENDOSCOPY (11/01/2024 12:00 AM HAY BUCKLER) us Scanner OTHER Final Result * SCAN-ENDOSCOPY (11/01/2024 12:00 AM HAY BUCKLER) us Scanner OTHER Final Result * ECHO TTE COMPLETE WO CONTRAST (10/31/2024 3:47 PM HAY BUCKLER) AORTIC VALVE MEAN PG 3 mmHg EJECTION FRACTION 73 % PEAK TR VELOCITY 3.6 m/s LVEDD 3.2 cm Anatomical Region Laterality Modality Ultrasound 10/31/2024 2:57 PM [facility]ER Narrative 10/31/2024 4:24 PM [facility]AY BUCK[facility]ER ECHOCARDIOGRAM JENNA VILLAGOMEZ : 1935 89 years Study Date: 10/31/2024 2:57:26 PM Gender: F BP: 117/58 mmHg Height: 160.00 cm BSA: 1.61 m Weight: 59.00 kg Tech: SHELBY Referring MD: HAM KEE Site: [facility] Reading Location: Mobile IP Patient [...] . This study was interpreted by an [facility] accredited facility. CC: HIM (med records) [facility], Med/Surg - IP [facility]. Final Procedure Note Sarah Mcleod, [facility] - 10/31/2024 ECHOCARDIOGRAM JENNA VILLAGOMEZ : 1935 89 years Study Date: 10/31/2024 2:57:26 PM Gender: F BP: 117/58 mmHg Height: 160.00 cm BSA: 1.61 m Weight: 59.00 kg Tech: SHELBY Referring MD: HAM KEE Site: [facility] Reading Location: Mobile IP Patient [...] . This study was interpreted by an [facility] accredited facility. CC: HIM (med records) [facility], Med/Surg - IP [facility]. Final us Ham Kee MD ECHO ORD Final Result * LAB TRACKING EVENT (10/31/2024 8:36 AM HAY [facility]CKLER) Other (Other) Client Collect / Unknown 10/31/2024 8:36 AM [facility]AY [facility]LER 10/31/2024 1:12 PM [facility]AY [facility]ER Ham Kee MD LAB BILL ONLY Final Result [facility] [address] [place] [address], * PERIPHERAL BLD MORPHOLOGY (10/31/2024 8:36 AM HAY BUCKLER) Case Report Special Hematology Report Case: [id number] Authorizing Provider: Ham Kee MD Collected: 10/31/2024 0836 Ordering Location: [facility] Received: 10/31/2024 135 Pathologist: Rafael Lynn MD Specimen: Peripheral Blood 11/01/2024 10:44 AM [facility] Final Diagnosis PERIPHERAL BLOOD: 1. Moderate normocytic anemia with infrequent schistocytes (0-1 per 100 X/HPF) 2. See comment 11/01/2024 10:44 AM [facility] Comment The features of the anemia [...] evaluate for microangiopathic hemolysis. 11/01/2024 10:44 AM [facility]- ENTRAL LABORATORY Clinical Information The patient is an 89-year-old female. Pertinent clinical information: Anemia. Per EPIC: Additional history includes paroxysmal A-fib. 11/01/2024 10:44 AM [facility]-C ENTRAL LABORATORY CBC and Differential HEMATOLOGY PARAMETERS Tested at: [facility] RESULTS EXPECTED VALUES WBC: 6.7 4.5-27e0663/cumm RBC: 3.0 4.00-5.20 mil/cumm DECREASED HGB: 7.9 12-16 gm/dl DECREASED HCT: 26.4 33-51% DECREASED MCV: 87.7 80-100 fl NORMOCYTIC MCH: 26.2 26-34 pg MCHC: 29.9 32-36 gm/dl HYPOCHROMIC RDW: 16.8 11.5-15.5% ELEVATED PLT: 213 140-433d2610/uL Retic: 3.0 0.5-1.5% ELEVATED Differential Tested at: [facility] Absolute (%) Expected (%) (x10*9/L) (x10*9/L) Neutrophils: 4.47 (67) 1.7-7.0 (42-72%) Lymphocytes: 1.38 (20.7) 0.9-2.9 (20-44%) Monocytes: 0.72 (10.8) <0.9 (0-11%) Eosinophils: 0.04 (.6) <0.5 (0-2%) Basophils: 0.05 (.7) <0.3 (<3.0%) Imm Grans: 0.01 (.1) <0.3 (0-3%) (Metas, Myelos,Pros) 11/01/2024 10:44 AM HAY BUCKLER [facility] Reticulocytes Retic: 3.0 0.5-1.5% ELEVATED 11/01/2024 10:44 AM [facility] Microscopic Description The final diagnosis is based on microscopic examination of an appropriately stained blood smear. 11/01/2024 10:44 AM [facility] Additional Information Interpreted at [facility] - [address] [facility] [address] [address] 11/01/2024 10:44 AM HAY BUCKLER [facility] Blood (Peripheral Blood) 10/31/2024 8:36 AM HAY BUCKLER 10/31/2024 1:59 PM [facility]ER us Ham Kee MD HEMATOLOGY Final Result [facility] [address] [place] [address], * (ABNORMAL) XR DXA BONE DENSITY 2 [...] recommended in 3-5 years. Diana Givens PA-C [facility] 03/12/2024 Narrative 03/12/2024 12:58 PM CDT For Patients: Results are automatically released to your [facility] ([employer]) account once available, in compliance with federal regulations. This means that you may see your results before your provider has had a chance to review them. Please allow 2-3 business days for your provider to comment on the results. XR DXA Bone Mineral Density (BMD) EXAM LOCATION: [address] [address] PATIENT NAME: Jenna Villagomez DATE OF : [...] two scanners are made by the same over the horizon targeting supervisor. PROCEDURE: Dual-energy x-ray absorptiometry performed with routine [...] 10.6%. 10-year probability of hip fracture: 3.3%. Citlaly Cassidy Shivrashaad DO DEXA Final Result from Last 3 Months or Most Recently Relevant to Health Maintenance Insurance [employer] PPO MR MEDICARE PART B HB ONLY [employer] PPO MR Care Teams Vendor Analyst Relationship Specialty Start Date End Date Citlaly Vázquez DO [address] [place] [address] PCP - General Family Practice 01/03/23 Kevin Livingston MD [address] [facility] [address] [place] [address] Ophthalmology Surgery 11/03/15
[2024-11-21 04:24] LABS: Appearance Urine Slightly Cloudy (Clear); Bilirubin Urine Negative (Negative); Blood Urine Negative (Negative); Color Urine Yellow (Yellow); Glucose Urine 1+ (Negative); Ketones Urine Negative (Negative); Leukocyte Esterase Urine Negative (Negative); Nitrite Urine Negative (Negative); Protein Urine Negative (Negative); Specific Gravity Urine 1.015 (1.000-1.030); Urobilinogen Urine 0.2 (0.2-1.0); pH Urine 7.5 (5.0-8.5)
[2024-11-21] MEDS: METOCLOPRAMIDE HCL 10 MG in 0.9 % SODIUM CHLORIDE 100 ml 100 ML 306 MG IVPB (04:26)
[2024-11-21 04:29] LABS: RBC Urine 0-2 (0-2); WBC Urine 0-2 (0-5)
[2024-11-21 04:30] LABS: Bacteria Urine Moderate; Squamous Epithelial Cell Urine Few (None-Few)
--- NOTE | 2024-11-25 15:57 | PC.SOCIAL ---
Social work note: Social work received voicemail from Adult Protection worker Aba asking for patient's contact information. SW called back and had to leave a voicemail requesting a call back. SW awaiting for response.
== END 2024-11-21 09:08 | disposition home or self-care (01) ==
PROVIDERS: Emergency Provider Family Medicine; PCP Family Medicine
DX: R19.7 Diarrhea, unspecified (principal); R53.1 Weakness
CPT/HCPCS: 36415; 80048; 81001; 83735; 85025; 86140; 87045; 87046; 87086; 87427; 87493; 87631; 93005; 94761; 96365; 99284; J2765; J7030

== ENCOUNTER 2024-12-04 13:04 | Outpatient (CLI) | payer OTHER, SELFPAY | END 2024-12-04 13:05 | disposition home or self-care (01) | LOC: AMB 12-05 11:39 | PROVIDERS: PCP Family Medicine; Visit Provider Family Medicine | DX: R55 Syncope and collapse (principal); R11.2 Nausea with vomiting, unspecified | CPT/HCPCS: A0425; A0427 ==